=== PATIENT | female | born 1930 | race Caucasian/White ===

== ENCOUNTER 2017-11-28 17:53 | Inpatient (IN) | payer MEDICARE, OTHER ==
[~2017-11-28] VITALS: Ht 177.8 cm; Wt 61.2 kg
[~2017-11-28 17:53] MED LIST: ACETAMINOPHEN650 M5 PO; ALDACTONE25 MG PO; BILBERRY1 EAC1 PO; CARDIZEM CD120 MG PO; CENTRUM SILVER1 EAC1 PO; CIPROFLOXACIN500 M3 PO; DIGOXIN250 MCG PO; FLECAINIDE ACET50 M1 PO; GLUCOSAMINE CH1 EAC7 PO; IRON325 PO; KEFLEX500 MG PO; KLOR-CON 1010 MEQ PO; KRILL OIL500 MG PO; LASIX 80 MG TAB80 MG PO; LEVAQUIN 500 M500 M2 PO; LEVOTHYROXIN0.025 MG PO; LOPRESSOR25 PO; METOLAZONE 5 MG5 MG PO; MINOCIN50 MG PO; MULTI VITAMIN1 EACH PO; NOHOMEMEDICATIONS; OCUVITE EYE +1 EACH PO; OCUVITE TABLET1 EAC1 PO; OMEGA-31000 M1 PO; OMEPRAZOLE40 MG PO; PROBIOTIC1 EAC2 PO; SANTYL OINTMENT30 G1 TP; SELENIUM200 MC3 PO; SILVADENE20 GM TP; SORINE 80 MG TA80 M1 PO; SYNTHROID75 MCG PO; TOPROL XL25 MG PO; XARELTO15 MG PO; XARELTO20 MG PO
[2017-11-28 18:01] VITALS: BP 114/85
[2017-11-28] MEDS ORDERED: BETAMETHASONE D15 G2 TOP (18:07)
[2017-11-28 18:37] LABS: HEMATOCRIT 36.5 % (37.0-47.0); HEMOGLOBIN 12.2 gm/dL (12.0-15.0); MCH 31.6 pg (26.0-34.0); MCHC 33.5 g/dL (28.0-37.0); MCV 94.2 fL (80.0-100.0); MPV 7.4 fl. (7.2-11.1); NUCLEATED RBCS 0 /100WBC; PLATELET COUNT* 251 thou/uL (150-400); RBC 3.88 mil/uL (4.20-5.00); RDW-CV 14.5 % (10.5-14.5); WBC 6.5 thou/uL (4.0-11.0)
[2017-11-28 18:46] LABS: CREATININE 1.4 mg/dL (0.6-1.3); POTASSIUM 4.4 mmol/L (3.5-5.1)
[2017-11-28 18:57] LABS: ALBUMIN 3.7 g/dL (3.4-5.0); TOTAL BILIRUBIN 1.2 mg/dL (<0.1-1.0); TOTAL PROTEIN 7.6 g/dL (6.4-8.2)
[2017-11-28 19:16] LABS: ABSOLUTE EOSINOPHILS 0.2 thou/uL (0.0-0.7); ABSOLUTE LYMPHOCYTES 0.7 thou/uL (0.8-5.3); ABSOLUTE MONOCYTES 0.5 thou/uL (0.0-1.2); ABSOLUTE NEUTROPHILS 5.2 thou/uL (1.6-8.1); ATYPICAL LYMPHS 1 %; OVALOCYTES 1+
[2017-11-28 19:17] LABS: ANISOCYTOSIS 1+; PLATELET ESTIMATE ADEQUATE; POIKILOCYTOSIS 1+
[2017-11-28 20:01] LABS: ESR (SEDRATE) 21 mm/hr (0-30)
[2017-11-28 21:30] VITALS: BP 121/75
[2017-11-28 22:00] VITALS: BP 107/73
[2017-11-29 04:00] VITALS: BP 85/53
--- NOTE | 2017-11-29 07:51 | NUR ---
PATIENT ARRIVED ON FLOOR FROM ER ABOUT 2140. PATIENT ADMISSION HISTORY AND ASSESSMENT WAS COMPLETED CHARTED. IV REMAINS SALINE LOCKED. PICTURES WERE TAKEN OF BILATERAL LOWER EXTREMTIES AND PLACED ON THE CHART. PATIENT HAD NO COMPLAINTS OF PAIN. WILL CONTINUE TO MONITOR.
[2017-11-29 07:55] VITALS: BP 99/64
--- NOTE | 2017-11-29 10:47 | NUR ---
CM SPOKE TO THE PATIENT TO DISCUSS HOME SITUATION, DISCHARGE PLANNING, AND TO INFORM OF THE ROLE OF CM. PATIENT ALERT, ORIENTED, AND INDEPENDENT WITH ADL'S. PATIENT RESIDES AT HOME WITH SON. PATIENT OWNS 0 DME. PATIENT HAS O HX OF HH OR SNF. PATIENT PLANS TO RETURN HOME AT DISCHARGE AND DOES NOT ANTICIPATE ANY NEEDS. CM WILL REMAIN AVAILABLE TO ASSIST AND FOLLOW NEEDED.
--- NOTE | 2017-11-29 11:24 | NUR ---
P.T. ORDERS RECEIVED. CHART REVIEWED. NSG INDICATED PT HAS BEEN UP INDEP W/O DIFFICULTY. PT REPORTED SAME. P.T. OBSERVED PT GET OUT OF BED AND AMB TO BATHROOM INDEP. PT HAS NO CONCERNS RE MOBILITY. NO ACUTE P.T. INTERVENTION INDICATED AT THIS TIME.
--- NOTE | 2017-11-29 11:59 | NUR ---
ORDER RECEIVED FOR "OT EVALUATION AND TREATMENT". PT STATES THAT SHE DOES NOT NEED OCCUPATIONAL THERAPY. PT ABLE TO REACH TO FEET I. PER P.T., PT I WITH MOBILITY TO BATHROOM. UE STRENGTH WFL. PLAN TO D/C FROM SKILLED OT SERVICES AT THIS TIME.
--- NOTE | 2017-11-29 14:07 | 2DMMODE ---
[place] [address] 2 D/M-MODE ECHOCARDIOGRAM Name: RU SHAH Room: [address] IN [facility]#: [id number] Admission: 11/28/17 Attend Phys: Lashon Bustamante, Discharge: Date of : 34 Date of Service: 11/29/17 1407 Report #: [id number] THIS REPORT FOR: //name// ADDENDUM APPROVED REPORT Study performed: 11/29/2017 12:15:59 EXAM: Comprehensive 2D, Doppler, and color-flow Echocardiogram Patient Location: In-Patient Room #: [facility] Status: routine BSA: 1.77 HR: 63 bpm BP: 85/53 mmHg Rhythm: Atrial Fibrillation Other Information Study Quality: Good Indications Pacemaker Heart failure? Large Right heart 2D Dimensions LVEF(%): 58.36 (>50%) IVSd: 10.91 (7-11mm) LVOT Diam: 19.49 (18-24mm) LVDd: 38.54 mm PWd: 9.10 (7-11mm) Ascending Ao: 33.63 (22-36mm) LVDs: 26.86 (25-40mm) Aortic Root: 31.66 mm Marx's LVEF: 58.36 % Volumes Left Atrial Volume (Systole) LA ESV Index: 38.60 mL/m2 Aortic Valve AoV Peak Brian.: 1.00 m/s AO Peak Gr.: 3.97 mmHg LVOT Max P.96 mmHg AO Mean Gr.: 1.77 mmHg LVOT Mean P.87 mmHg LVOT Max V: 0.70 m/s AO V2 VTI: 14.84 cm LVOT Mean V: 0.43 m/s DALLAS (VTI): 2.35 cm2 LVOT V1 VTI: 11.68 [place] [address] 2 D/M-MODE ECHOCARDIOGRAM Name: RU SHAH Room: [address] IN .R.#: [id number] Admission: 11/28/17 Attend Phys: Lashon Bustamante, Discharge: Date of : 34 Date of Service: 11/29/17 1407 Report #: [id number] MV Decel. Time: 184.38 ms MV PHT: 53.47 ms MVA (PHT): 4.11 cm2 TDI Medial E' Brian.: 0.12 m/s Lateral E' Brian.: 0.18 m/s Pulmonary Valve PV Peak Brian.: 0.73 m/s PV Peak Gr.: 2.12 mmHg Tricuspid Valve TR Peak Gr.: 13.09 mmHg RVSP: 28.00 mmHg Left Ventricle The left ventricle is normal size. There is normal LV segmental wall motion. There is normal left ventricular wall thickness. Left ventricular systolic function is normal. The left ventricular ejection fraction is within the normal range. LVEF is 55-60%. This study is not technically sufficient to allow evaluation of the LV diastolic function due to atrial fibrillation. Right Ventricle Right ventricle is severely dilated. Right ventricle is hypokinetic. Pacemaker lead is present in the right ventricle. Atria Left atrium is mildly dilated. Right atrium is severely dilated. Aortic Valve The aortic valve is normal in structure. No aortic regurgitation is present. There is no aortic valvular stenosis. Mitral Valve The mitral valve is normal in structure. Mild mitral regurgitation. No evidence of mitral valve stenosis. Tricuspid Valve The tricuspid valve is normal in structure. Severe tricuspid regurgitation. The RVSP is ___28____ mmHg. Pulmonic Valve The pulmonary valve is normal in structure. There is no pulmonic [place] [address] 2 D/M-MODE ECHOCARDIOGRAM Name: RU SHAH Room: [address] IN [facility]#: [id number] Admission: 11/28/17 Attend Phys: Lashon Bustamante, Discharge: Date of : 34 Date of Service: 11/29/17 1407 Report #: [id number] Great Vessels The aortic root is normal in size. IVC is dilated and collapses <50% with inspiration. Pericardium There is no pericardial effusion. Left pleural effusion. <Conclusion> Left ventricular systolic function is normal. The left ventricular ejection fraction is within the normal range. LVEF is 55-60%. This study is not technically sufficient to allow evaluation of the LV diastolic function due to atrial fibrillation. Right ventricle is severely dilated. Left atrium is mildly dilated. Right atrium is severely dilated. No aortic regurgitation is present. Mild mitral regurgitation. The tricuspid valve is normal in structure. Severe tricuspid regurgitation. The RVSP is ___28____ mmHg. There is no pulmonic valvular regurgitation. IVC is dilated and collapses <50% with inspiration. Pacemaker lead is present in the right ventricle. Left pleural effusion. <ELECTRONICALLY SIGNED> By: Mary Aldana MD, FACC 11/29/17 1407 1407 140 Mary Aldana MD, FACC /INF
--- NOTE | 2017-11-29 15:12 | EKG ---
[place] [address] ELECTROCARDIOGRAM REPORT Name: RU SHAH Room: [address] ADM IN M.R.#: [id number] Admission: 11/28/17 Attend Phys: Lashon Bustamante MD Discharge: Date of : 34 Report #: [id number] THIS REPORT FOR: //name// [facility] Test Date: 2017-11-29 Test Time: 14:22:28 Pat Name: RU SHAH Department: Room: [address] Gender: F Plant Hr Manager: : 1930 Requested By: Lashon Bustamante Order Number: [id number] Reginald MD: Wolf Maciel Measurements Intervals [place] Rate: 74 P: 0 [place]: 180 QRS: 88 QRSD: 97 T: -75 QT: 376 QTc: 418 Interpretive Statements Atrial fibrillation Occasional ventricularly paced complexes Premature ventricular contractions Consider RVH w/ secondary repol abnormality Abnormal T, consider ischemia, lateral leads Compared to ECG 07/19/2017 16:11:54 T-wave abnormality now present Possible ischemia now present Atrial-paced complex(es) or rhythm no longer present Right-axis deviation no longer present Electronically Signed On 11-29-2017 15:12:25 DIRECTOR ACUTE by Wolf Maciel [email or web address] <ELECTRONICALLY SIGNED> By: Wolf Maciel MD, [facility] 11/29/17 1512 142 142 Wolf Maciel MD, [facility] /EPI
[2017-11-29 17:02] VITALS: BP 94/62
--- NOTE | 2017-11-29 18:35 | NUR ---
PATIENT RESTING IN BED, FAMILY AT BEDSIDE. PATIENT DENIES ANY PAIN. PATIENT HAS BLE CELLULITIS, AREAS STILL WARM/RED AND EDEMA HAS SUBSIDED SLIGHTLY. PATIENT IS UP AD KINGA IN ROOM. PATIENT HAS GOOD APPETITE. PATIENT DENIES ANY NEEDS AT THIS TIME. CALL LIGHT WITHIN REACH. WILL CONTINUE TO MONITOR.
[2017-11-29 20:45] VITALS: BP 108/56
[2017-11-30] VITALS: BP 105/62
[2017-11-30 04:40] LABS: HEMATOCRIT 33.5 % (37.0-47.0); HEMOGLOBIN 11.5 gm/dL (12.0-15.0); MCHC 34.4 g/dL (28.0-37.0); MPV 7.6 fl. (7.2-11.1); RBC 3.6 mil/uL (4.20-5.00); RDW-CV 14.6 % (10.5-14.5); WBC 4.6 thou/uL (4.0-11.0)
[2017-11-30 05:05] LABS: CALCIUM 8.5 mg/dL (8.5-10.1); CREATININE 1.3 mg/dL (0.6-1.3); MAGNESIUM 2.1 mg/dL (1.8-2.4); TOTAL BILIRUBIN 0.5 mg/dL (<0.1-1.0); TOTAL PROTEIN 6.1 g/dL (6.4-8.2)
--- NOTE | 2017-11-30 05:35 | NUR ---
PT SLEPT SOUNDLY DURING THE NIGHT, NEW IV PLACED LAST NIGHT, UP AD KINGA, TOOK SHOWER BY SELF, CALL LIGHT IN REACH, NO PAIN, WILL CONTINUE TO MONITOR
[2017-11-30 07:50] VITALS: BP 102/62
[2017-11-30 16:00] VITALS: BP 97/60
--- NOTE | 2017-11-30 18:44 | NUR ---
RECIEVED PATIENT AT 1500. PATIENT A&OX4, ROOM AIR, IV RIGHT FOREARM SALINE LOCK WITH IV ABX. UP AD KINGA, STEADY GAIT. NO C/O PAIN/N/V. NO OTHER CONCERNS AT THIS TIME. APPROPRIATE AND COOPORATIVE WITH CARE.
[2017-11-30 19:50] VITALS: BP 103/57
[2017-12-01 04:44] LABS: HEMOGLOBIN 11.9 gm/dL (12.0-15.0); MCH 31.8 pg (26.0-34.0); MCV 93.6 fL (80.0-100.0); MPV 7.6 fl. (7.2-11.1); RBC 3.74 mil/uL (4.20-5.00); RDW-CV 14.5 % (10.5-14.5); WBC 4.1 thou/uL (4.0-11.0)
[2017-12-01 05:02] LABS: CALCIUM 8.7 mg/dL (8.5-10.1); CREATININE 1.4 mg/dL (0.6-1.3); MAGNESIUM 2.2 mg/dL (1.8-2.4)
--- NOTE | 2017-12-01 07:25 | NUR ---
PT SLEPT MOST OF NIGHT. ASSESSMENT DOCUMENTED. MEDS GIVEN PER E-JAN. PT REPORTED NO PAIN OR NAUSEA. IV PATENT. NO CONCERNS AT THIS TIME, WILL CONTINUE TO MONTIOR.
[2017-12-01 07:40] VITALS: BP 106/65
[2017-12-01 09:23] VITALS: BP 96/57
--- NOTE | 2017-12-01 13:47 | NUR ---
NEW P.T. ORDERS RECEIVED ON 11/30/17 FOR STRENGTHENING AND AMBULATION. NOTED IN CHART, THAT PT WAS SCREENED BY P.T. ON 11/29/17 AND FOUND TO NOT MEET THE CRITERIA FOR SKILLED INTERVENTION SHE WAS UP AD KINGA, INDEPENDENT IN ROOM AND DENIED NEED FOR P.T. DISCUSSED AGAIN WITH NSG THIS DATE, WHO REPORT PT CONTINUES TO BE UP AD KINGA, INDEPENDENT IN ROOM WITH NO CHANGE SINCE 11/29/17 IN FUNCTIONAL STATUS OR STRENGTH. IN FACT, THEY REPORTED PT AMBULATED INDEPENDENTLY DOWN THE ROPER AND TOOK HER OWN SHOWER THIS MORNING. NO SKILLED P.T. INTERVENTIONS IDENTIFIED AT THIS TIME.
[2017-12-01 15:23] VITALS: BP 96/57
[2017-12-01] MEDS ORDERED: KEFLEX500 M1 PO (15:30)
--- NOTE | 2017-12-01 16:09 | NUR ---
PATIENT A&OX4, ROOM AIR, IV RIGHT WRIST SALINE LOCK. UP AD KINGA STEADY GAIT. NO C/O PAIN/N/V. NO OTHER CONCERNS AT THIS TIME. PICTURES TAKEN OF BLE. IV DISCONDINUED CATHETER FULLY INTACT. PROLONGED BLEEDING AT SITE; HELD PRESSURE FOR 5 MIN, BLEEDING STOPPED. REVEIWED DISCHARGE PAPERWORK, VERBALIZES UNDERSTANDING, NO FURTHER QUESTIONS. LEFT UNIT AT 1605 VIA W/C WITH CHILD. ALL BELONGINGS TAKEN WITH PATIENT, NOTHING LEFT BEHIND. APPROPRIATE AND COOPORATIVE WITH CARE.
--- NOTE | 2017-12-03 08:34 | CON ---
[address] [address] CONSULTATION Name: RU SHAH Room: [address] IN .R.#: [id number] Admission: 11/28/17 Attend Phys: Lashon Bustamante MD Discharge: 12/01/17 Date of : 34 Report #: [id number] THIS REPORT FOR: //name// CC: Jeff Aldana MD [facility] Lashon Diaz DO INDICATION FOR ADMISSION: Acute on chronic combined heart failure. HISTORY OF PRESENT ILLNESS: The patient is a very pleasant 87-year-old white female who has a history of dilated cardiomyopathy, chronic combined congestive heart failure, essential hypertension, chronic atrial fibrillation, pacemaker placement and peripheral vascular disease. The patient was admitted to the hospital with increased lower extremity swelling and cellulitis as well as acute on chronic combined heart failure. The patient's swelling has improved overnight with bed rest and diuresis. She denies chest pain. She is not having shortness of breath. She is without palpitations. She has a pacemaker placement in the past. By interrogation, she has chronic atrial fibrillation. PAST MEDICAL HISTORY: 1. Atrial fibrillation, which now appears to be persistent. 2. Chronic combined heart failure. 3. History of paroxysmal supraventricular tachycardia. PAST SURGICAL HISTORY: Breast lumpectomy 10/24/2013, breast surgery in 1983, cardiac pacemaker placement 2 years ago, cataract extraction in 2015. FAMILY HISTORY: Noncontributory. SOCIAL HISTORY: She quit smoking in 1996. She does not drink alcohol. ALLERGIES: None documented. HOME MEDICATIONS: Bilberry supplement 1 tablet daily, digoxin 0.125 mg every other day, diltiazem 120 mg daily, iron sulfate 325 mg daily, Lasix 60 mg b.i.d., Krill oil 500 mg daily, Probiotic 1 capsule daily, Synthroid 75 mcg daily, metolazone 5 mg daily as needed, metoprolol succinate 25 mg daily, multivitamin 1 tablet daily, potassium chloride 10 mEq daily, Xarelto 15 mg daily, spironolactone 25 mg daily. REVIEW OF SYSTEMS: She reports near syncope twice in the recent past, hypothyroidism, history of anemia, history of breast cancer. She wears glasses without acute visual changes. She has decreased hearing and she wears dentures. Otherwise, 14-point review of systems is unremarkable. PHYSICAL EXAMINATION: [place] [address] CONSULTATION Name: RU SHAH Room: [address]#: [id number] Admission: 11/28/17 Attend Phys: Lashon Bustamante MD Discharge: 12/01/17 Date of : 32 Report #: [id number] VITAL SIGNS: Stable. Blood pressure 99/64, pulse 85 and irregular. GENERAL: This is a very pleasant elderly female who is in no distress. Mood and affect appropriate. HEENT: The patient is wearing glasses. Extraocular muscles intact. Mucous membranes are moist. NECK: Shows no jugular venous distention. There are no carotid bruits. CHEST: Chest reveals clear lung green without wheezes or rales. CARDIOVASCULAR: Reveals an irregularly irregular rhythm. I do not appreciate gallop or murmur. ABDOMEN: Reveals normal bowel sounds. The abdomen is soft and nontender. EXTREMITIES: Shows 2+ edema to the knees bilaterally with erythema and some bullous lesions. The legs are not warm to touch at this time. IMPRESSION AND RECOMMENDATIONS: 1. Acute on chronic combined heart failure. At this time, we will continue the patient's Lasix and increase her Aldactone to 50 mg daily. We will continue metolazone as needed. 2. Cellulitis. The patient has been placed on antibiotics. She appears to be defervescing fairly quickly. 3. Atrial fibrillation, rate appears fairly well controlled at this time. I am increasing her diltiazem to 120 mg twice daily. We will continue her digoxin and metoprolol at current doses. The patient is on Xarelto and having no bleeding problems. 4. History of essential hypertension. Her blood pressure actually is low normal presently. We will follow clinically. 5. Pacemaker adjusted to VVI to avoid rapid pacing and increased filling time. 6. History of peripheral vascular disease, presently stable. <ELECTRONICALLY SIGNED> By: Wolf Maciel MD, FACC 12/03/17 0834 1149 [id number] Center[facility] Maciel MD, FACC /nt
== END 2017-12-01 16:05 | disposition home or self-care (01) | DRG 602 ==
LOC: M.ERS 17:53 → M.3W 20:10 → M.TBA-ER 20:10 → M.3W 21:16
PROVIDERS: Family Medicine; Physician Assistant; ADMIT Internal Medicine
DX: L03.116 Cellulitis of left lower limb (principal); I50.43 Acute on chronic combined systolic (congestive) and diastolic (congestive) heart failure; N17.9 Acute kidney failure, unspecified; I42.0 Dilated cardiomyopathy; I13.0 Hypertensive heart and chronic kidney disease with heart failure and stage 1 through stage 4 chronic kidney disease, or unspecified chronic kidney disease; L03.115 Cellulitis of right lower limb; I48.91 Unspecified atrial fibrillation; E03.9 Hypothyroidism, unspecified; I48.2 Chronic atrial fibrillation; I73.9 Peripheral vascular disease, unspecified; N18.9 Chronic kidney disease, unspecified; I87.2 Venous insufficiency (chronic) (peripheral); Z79.899 Other long term (current) drug therapy; Z95.0 Presence of cardiac pacemaker; Z98.49 Cataract extraction status, unspecified eye; Z87.891 Personal history of nicotine dependence

== ENCOUNTER 2018-02-03 17:28 | Inpatient (IN) | payer MEDICARE, OTHER ==
[~2018-02-03] VITALS: Ht 177.8 cm; Wt 67.6 kg
[~2018-02-03 17:28] MED LIST changes: +BETAMETHASONE D15 G2 TOP; +KEFLEX500 M1 PO
[2018-02-03 17:31] VITALS: BP 119/69
[2018-02-03 19:22] LABS: HEMATOCRIT 36.9 % (37.0-47.0); HEMOGLOBIN 12.6 gm/dL (12.0-15.0); MCH 31.5 pg (26.0-34.0); MCHC 34.1 g/dL (28.0-37.0); MCV 92.4 fL (80.0-100.0); MPV 7.5 fl. (7.2-11.1); NUCLEATED RBCS 0 /100WBC; PLATELET COUNT* 226 thou/uL (150-400); RBC 3.99 mil/uL (4.20-5.00); RDW-CV 15.7 % (10.5-14.5); WBC 7.5 thou/uL (4.0-11.0)
[2018-02-03 19:30] LABS: CALCIUM 8.9 mg/dL (8.5-10.1); CREATININE 2.1 mg/dL (0.6-1.3); POTASSIUM 4.2 mmol/L (3.5-5.1)
[2018-02-03 19:31] LABS: APTT 38.8 Seconds (25.0-31.3); INR 1.5; PROTIME 14.7 Seconds (9.20-11.50)
[2018-02-03 19:35] LABS: ALBUMIN 3.9 g/dL (3.4-5.0); TOTAL BILIRUBIN 0.5 mg/dL (<0.1-1.0); TOTAL PROTEIN 7.5 g/dL (6.4-8.2)
[2018-02-03 19:41] LABS: ABSOLUTE LYMPHOCYTES 0.5 thou/uL (0.8-5.3); ABSOLUTE MONOCYTES 0.4 thou/uL (0.0-1.2); ABSOLUTE NEUTROPHILS 6.6 thou/uL (1.6-8.1); OVALOCYTES 1+; PLATELET ESTIMATE ADEQUATE
[2018-02-03 19:42] LABS: ANISOCYTOSIS 1+; BURR CELLS Occasional; POIKILOCYTOSIS 1+
[2018-02-03 21:15] VITALS: BP 112/63
[2018-02-03 21:19] VITALS: BP 113/68
--- NOTE | 2018-02-03 23:26 | NUR ---
PATIENT ARRIVED ON UNIT AT 2118 VIA ER CART. TRANSFERRED TO UNIT BED. ORIENTED TO UNIT. ADMISSION COMPLETE. BED IN LOW POSITION. BED ALARM IN PLACE. CALL LIGHT WITHIN REACH. NURSING WILL CONTINUE TO MONITOR.
[2018-02-04] VITALS (7 sets, daily range): BP systolic 98–116; BP diastolic 58–76
[2018-02-04 01:39] LABS: URINE BILIRUBIN NEGATIVE (Negative); URINE BLOOD NEGATIVE (Negative); URINE CLARITY CLEAR; URINE COLOR YELLOW; URINE GLUCOSE-RANDOM NEGATIVE (Negative); URINE KETONES NEGATIVE (Negative); URINE LEUKOCYTES-REFLEX NEGATIVE (Negative); URINE NITRITE-REFLEX NEGATIVE (Negative); URINE PROTEIN NEGATIVE (Negative); URINE SPECIFIC GRAVITY 1.025 (1.005-1.030); URINE UROBILINOGEN 0.2 E.U./dl (0.2-1.0)
--- NOTE | 2018-02-04 04:49 | NUR ---
PATIENT ALERT AND ORIENTED THROUGHOUT SHIFT. CURRENTLY ON 4 LITERS OF OXYGEN WITH A SAT OF 92%. VITAL SIGNS STABLE. PAIN BEING MANAGED WITH IV PAIN MEDICATION. DENIED ANY NAUSEA THROUGHOUT SHIFT. IV PATENT IN THE LEFT AC INFUSING NS AT 100 ML/HR. PATIENT HAS BEEN CONCERNED ABOUT IF SHE WILL BE HAVING SURGERY. NURSING EXPLAINED TO HER A PLAN WOULD BE MADE AND SHE WOULD BE KEPT INFORMED. NPO STATUS HAS BEEN MAINTAINED. HOURLY ROUNDING COMPLETE. FALL PRECAUTIONS IN PLACE. CALL LIGHT WITHIN REACH. NURSING WILL CONTINUE TO MONITOR.
[2018-02-04 10:39] LABS: HEMATOCRIT 35.9 % (37.0-47.0); HEMOGLOBIN 12.1 gm/dL (12.0-15.0); MCH 31.1 pg (26.0-34.0); MCHC 33.6 g/dL (28.0-37.0); MCV 92.4 fL (80.0-100.0); MPV 7.6 fl. (7.2-11.1); RBC 3.88 mil/uL (4.20-5.00); RDW-CV 15.4 % (10.5-14.5); WBC 6.2 thou/uL (4.0-11.0)
--- NOTE | 2018-02-04 10:51 | EKG ---
[place] [address] ELECTROCARDIOGRAM REPORT Name: RU SHAH Room: [address] ADM IN M.R.#: [id number] Admission: 02/03/18 Attend Phys: Garett Jenkins MD Discharge: Date of : 34 Report #: [id number] THIS REPORT FOR: //name// [facility] ED Test Date: 2018-02-03 Test Time: 19:08:06 Pat Name: RU SHAH Department: Room: [facility] Gender: F Hot Stamp Operator: [facility] : 1930 Requested By: Zaki Bailey Order Number: [id number] MD: Sam Lal Measurements Intervals [place] Rate: 65 P: 0 [place]: 284 QRS: -85 QRSD: 171 T: 95 QT: 479 QTc: 499 Interpretive Statements Ventricular-paced complexes No further analysis attempted due to paced rhythm Compared to ECG 11/29/2017 14:22:28 Ventricular premature complex(es) no longer present paced rhythm noted Electronically Signed On 02-04-2018 10:50:45 CDT by Sam Lal [email or web address] <ELECTRONICALLY SIGNED> By: Sam Lal MD, FACC 02/04/18 1050 1908 1908 Sam Lal MD, [facility] /EPI
[2018-02-04 10:56] LABS: APTT 34.3 Seconds (25.0-31.3); INR 1.2; PROTIME 12.1 Seconds (9.20-11.50)
[2018-02-04 11:37] LABS: ALBUMIN 3.4 g/dL (3.4-5.0); CALCIUM 8.5 mg/dL (8.5-10.1); CREATININE 1.7 mg/dL (0.6-1.3); MAGNESIUM 2.3 mg/dL (1.8-2.4); POTASSIUM 4.3 mmol/L (3.5-5.1); TOTAL BILIRUBIN 0.7 mg/dL (<0.1-1.0); TOTAL PROTEIN 6.7 g/dL (6.4-8.2)
--- NOTE | 2018-02-04 18:41 | NUR ---
PATIENT HAS NOT RETURNED FROM PACU. WILL CONTINUE TO MONITOR.
[2018-02-05] VITALS (12 sets, daily range): BP systolic 89–119; BP diastolic 51–72
--- NOTE | 2018-02-05 01:21 | NUR ---
PT TRANSFERED TO ICU 06 FROM PACU. LEFT HIP DRSG D/I. ICE PACK ON L HIP. DENIES PAIN UNTIL APPROX MN THEN 10/10.HYDROCODONE GIVEN FOR L HIP PAIN. MELATONIN GIVEN FOR SLEEP. PT ON BIPAP. REQUESTING FREQ ORAL CARE Q 15 MIN. PT TEACHING RE RECOVERY TIME ON BIPAP. AT ONE POINT PT STATED SHE DID NOT WANT TO BE ON BIPAP. RT NOTIFED. RT CAME AND SPOKE WITH PT AND PT IS CONTINUING BIPAP. PT INITAL ASSESSMENT REFUSED TO TURN. PT TEACHING RE TURNING Q 2 HRS. PT CONSENTED AT 2200 TO BE TURNED. WILL CONTINUE TO MONITOR AND ASSESS.
[2018-02-05 04:10] LABS: HEMATOCRIT 31.8 % (37.0-47.0); HEMOGLOBIN 10.7 gm/dL (12.0-15.0)
--- NOTE | 2018-02-05 04:55 | NUR ---
PT OFF BIPAP AT 0400. ON 4 LITERS NC. O2 SAT 91% PT IS AT HER BASE LINE SAT. DENIES PAIN. WILL CONTINUE TO MONITOR.
--- NOTE | 2018-02-05 08:31 | NUR ---
ORDERS RECEIVED 02/04/18. PT TRANSFERRED TO ICU FROM PACU WITH RESPIRATORY ISSUES. WILL HOLD P.T. AND AWAIT NEW ORDERS WHEN PT MEDICAL STABLE TO PARTICIPATE IN POST-OP THERAPY.
[2018-02-05 09:52] LABS: CALCIUM 8.6 mg/dL (8.5-10.1); CREATININE 2.2 mg/dL (0.6-1.3); POTASSIUM 4.7 mmol/L (3.5-5.1)
--- NOTE | 2018-02-05 12:00 | NUR ---
ASSUMED CARE OF PT AT 0730. PT RESTING IN BED. PT A&0X4, FORGETFUL AT TIMES. PT MADE TELE STATUS. PT POD 1 FOR L HIP HEMIARTHROPLASTY. PT GOAL FOR TODAY IS TO WORK WITH PT AND OT, TITRATE OFF OXYGEN AND DISCONTINUE GONZALEZ CATHETER. PT TRACING AV PACED ON THE BRICK SIDING APPLICATOR. PT ON 4L NC SAT 88% UPON BEGINNING OF SHIFT. PT INCREASED TO 6 L HIGH FLOW NC SAT 93%. PT DENIES ANY SHORTNESS OF BREATH. PT ENCOURAGED TO COUGH AND DEEP BREATH WELL USE IS EVERY 1 HOUR. FAMILY AT BEDSIDE. GONZALEZ CATHETER TO DEPENDENT DRAINAGE. IVF AT 75 ML HR. PT IS 50% WTB LLE. ABDUCTOR WEDGE IN PLACE. PT REPOSITIONED EVERY 2 HOURS FOR COMFORT. HOB 30-45 DEGREES AT ALL TIMES. TOTAL HIP PRECAUTIONS IN PLACE. REHAB CONSULT IN PLACE FOR DISCHARGE VS SNF. LEFT HIP INCISION IS C/D/I WITH ABD AND MATAPOR TAPE. PT USES ICE PACK Q2 HOURS FOR PAIN, OTHER THAN THAT DENIES ANY PAIN OR DISCOMFORT TO LEFT HIP. FAMILY AT BEDSIDE. AM ASSESSMENT CHARTED. MEDICATIONS PER JAN. PT REPOSITIONED EVERY 2 HOURS FOR COMFORT. HOURLY ROUNDING OBSERVED. BED IN LOW POSITION. BED ALARM IN PLACE. FALL PRECAUTIONS IN PLACE. CALL LIGHT WITHIN REACH. WILL CONTINUE PLAN OF CARE.
--- NOTE | 2018-02-05 12:42 | NUR ---
CM SPOKE TO THE PATIENT TO DISCUSS HOME SITUATION, DISCHARGE PLANNING, AND TO INFORM OF THE ROLE OF CM. PATIENT ALERT AND ORIENTED. PRIOR TO ADMISSION PATIENT ABLE TO PERFORM MITOCHONDRIAL DISORDERS COUNSELOR, AND PREPARE MEALS. PATIENT DRIVES. PATIENT RESIDES AT HOME WITH SON. PATIENT OWNS A WALKER BUT DOES NOT USE IT. PATIENT HAS NO HX OF OR SNF. PATIENT INFORMS THAT DR MCLAIN HAS CONSULTED REHAB AND SHE HOPES TO RECIEVE THERAPY ON INPATIENT REHAB PRIOR TO RETURNING HOME. CM WILL REMAIN AVAILABLE TO ASSIST AND FOLLOW NEEDED.
--- NOTE | 2018-02-05 13:15 | OP ---
[facility] [address] [place] [address] OPERATIVE REPORT Name: RU SHAH Room: [address] IN M.R.#: [id number] Admission: 02/03/18 Attend Phys: Garett Jenkins MD Discharge: Date of : 34 Report #: [id number] THIS REPORT FOR: //name// CC: Garett Diaz DATE OF SERVICE: 02/04/2018 FAMILY PHYSICIAN: Dr. Danny Diaz. PREOPERATIVE DIAGNOSIS: Closed displaced subcapital left hip fracture. POSTOPERATIVE DIAGNOSIS: Closed displaced subcapital left hip fracture. OPERATION PERFORMED: Hemiarthroplasty, left hip. SURGEON:, Wolf Garcia DO. UNDERWRITING ASSISTANT: Garett Garrido. NEXT ACTIVITIES SPECIALIST: Dane Slater,. ANESTHESIA: General. GROSS PATHOLOGY: There was evidence of a displaced subcapital left hip fracture. IMPLANTS UTILIZED: Hardy VerSys mid fiber code size 14. A 0 neck length, head, 51 mm bipolar acetabular shell. DESCRIPTION OF PROCEDURE: The patient was brought to the operating room where general anesthetic was administered. The patient was placed on the operating table in lateral position, left hip up. Preoperative antibiotics were given. Hibiclens scrub and prep were done to the left hip in the usual manner. The patient draped in sterile manner. An incision was then made approximately 5 inches in length on the lateral aspect of the left hip, was carried down through the skin and subcuticular material by sharp dissection. Tensor fascia rosa split in line with the incision. Gluteus medius and minimus were transected at the musculotendinous junction. An opening H-type capsulotomy was performed. The femoral neck is marked. Osteotomy was performed. The head was removed, measured, trial 51 was noted to fit well. Attention to the femur where the box osteotome was utilized to remove the medial portion of the greater trochanter. The T-reamer was placed down the shaft, and the trochanteric broach is utilized. The femur was then reamed and broached up to size 14, which was a good fit. The trial components were assembled. The hip was reduced with the above size being the best fit. The trial components are removed[place] [address] OPERATIVE REPORT Name: RU SHAH Room: [address] IN [facility].#: [id number] Admission: 02/03/18 Attend Phys: Garett Jenkins MD Discharge: Date of : 34 Report #: [id number] was impacted into position and noted to fit well. The bipolar cup is assembled, placed on the femoral stem, impacted into position. The hip was reduced and noted to be stable and the components fit well. The remaining portion of the capsule was reattached with 1 Vicryl. Gluteus medius and minimus reattached with a 5 Ti-Cron, tensor fascia rosa with 1 Vicryl, subcutaneous 2-0 Vicryl and salvatore on the skin. Estimated blood loss approximately 150 mL. The wound was thoroughly irrigated throughout the entire procedure. Needle and sponge count reported as correct. The area was anesthetized with 0.25% Marcaine plain, approximately 30 mL. <ELECTRONICALLY SIGNED> By: Rigoberto Gerber DO 02/05/18 1315 1528 [id number] Garcia DO /nt
--- NOTE | 2018-02-05 13:16 | NUR ---
STREET AND BUILDING DECORATOR: RECEIVED CONSULT FOR POSSIBLE INPATIENT REHAB ADMISSION. CONSULT HAS BEEN ACKNOWLEDGED BY STREET AND BUILDING DECORATOR AND DR. FLOYD. PATIENT HAS SUFFERED A FRACTURED HIP. WILL FOLLOW PATIENT AND SEE HOW SHE PROGRESSES WITH THERAPY THERAPY NOT STARTED AT THIS TIME DUE TO RESPIRATORY ISSUES. THANK YOU FOR THE CONSULT.
--- NOTE | 2018-02-05 17:41 | NUR ---
NO ACUTE CHANGES THROUGHOUT SHIFT. REFER TO CHARTING. PT TRANSFERRED TO TELE ROOM 212 AT APPROXIMATELY 1300 VIA BED AND ALL BELONGINGS. PT WORKED WITH PHYSICAL AND OCCUPATIONAL THERAPY TODAY. TOLATED FAIR. PT UP TO RECLINER WITH ASSIST X1. PT DENIES ANY NEED FOR PAIN MEDICINE THROUGHOUT SHIFT. PT ENCOURAGED TO USE ICE PACK Q2H PRN. PT CONTINUES TO BE ON 6L HIGH FLOW NC SAT 90-93%. PT DENIES ANY SHORTNESS OF BREATH. PT ENCOURAGED TO USE IS AND DEEP BREATHING AND COUGHING EXERCISES. PT CONTINUES TO TRACE AV PACED ON THE BOXING PROMOTER. GONZALEZ DISCONTINUED AT APPROXIMATELY 1730. PT REQUESTING TO LEAVE GONZALEZ IN UNTIL AM. EDUCATION GIVEN TO PT AND PT FAMILY REGARDING INFECTION. IVF. PT 50% WB LLE. ABDUCTOR WEDGE IN PLACE IN BED. MEDICATIONS PER JAN. PT REPOSITIONED EVERY 2 HOURS FOR COMFORT. HOURLY ROUNDING OBSERVED. BED IN LOW POSITION. BED ALARM IN PLACE. FALL PRECAUTIONS IN PLACE. CALL LIGHT WITHIN REACH. WILL CONTINUE PLAN OF CARE.
[2018-02-06 05:00] VITALS: BP 105/72
[2018-02-06 05:01] LABS: HEMATOCRIT 28.1 % (37.0-47.0); HEMOGLOBIN 9.8 gm/dL (12.0-15.0); MCH 31.2 pg (26.0-34.0); MCHC 34.7 g/dL (28.0-37.0); MCV 89.9 fL (80.0-100.0); MPV 7.8 fl. (7.2-11.1); RBC 3.13 mil/uL (4.20-5.00); RDW-CV 15.4 % (10.5-14.5); WBC 12.5 thou/uL (4.0-11.0)
--- NOTE | 2018-02-06 05:30 | NUR ---
PATIENT RESTED IN BED. PATIENT O2 REQUIMENT INCREASED. PATIENT DID NOT SHOW SIGNS OF DISTRESS. HIP PRECAUTIONS WERE FOLLWED. FALL PRECAUTIONS IN PLACE, BED ALARM ON, CALL LIGHT WITHIN REACH. PATIENT WAS TURNED Q2 HOURS.
[2018-02-06 05:35] LABS: CALCIUM 8.6 mg/dL (8.5-10.1); CREATININE 2.4 mg/dL (0.6-1.3); POTASSIUM 5.2 mmol/L (3.5-5.1)
[2018-02-06 08:00] VITALS: BP 96/60
[2018-02-06 11:42] VITALS: BP 103/72
--- NOTE | 2018-02-06 13:18 | S ---
[address] [address] SURGICAL PATH RPT PROCEDURE Name: RU SHAH Room: [address] IN M.R.#: [id number] Admission: 02/03/18 Date of : 34 Discharge: Report #: [id number] Path Case #: [id number] PATHOLOGY REPORT COLLECTION DATE: 02/04/2018 RECEIVED DATE: 02/04/2018 SUBMITTING PHYS: Dr. Wolf Garcia OTHER PHYS: Dr. 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 (MELONIE:[facility]; 02/06/2018) PATHOLOGIST: Gordo Gil M.D. REPORT ELECTRONICALLY SIGNED BY: Gordo Gil M.D. DATE/TIME: 02/06/2018 13:18 * * * * * * * * * * * * GROSS PATHOLOGY: Received in formalin labeled "Ru Shah bone left hip," is a femoral head measuring 5.1 x 5.1 x 3.8 cm in greatest dimensions and separately submitted femoral neck measuring 3.5 x 2.5 x 1.8. The articular surface is pale mccoy and smooth to slightly granular in appearance. Sectioning reveals a light mccoy marrow space, with the distal most aspect hemorrhagic in appearance, consistent with a fracture site. Multiple Spindle Router Operator tissue from the fracture site is submitted in cassette A1, following decalcification. ([facility]; 02/05/2018) CLINICAL HISTORY: Left hip fracture INITIAL CPT CODE(S): A; 25071, 72685 Professional services performed by [facility] at [facility] [id number] [id number] SURGICAL PATH RPT PROCEDURE Name: RU SHAH Room: [address] IN [facility].#: [id number] Admission: 02/03/18 Date of : 32 Discharge: Report #: [id number] Path Case #: [id number] Technical services performed by [facility] at [address] [place] [address], [facility] [address], [place] [address]. [place] [address] PHONE: [phone] DIRECTOR: Jeffery Aleman M.D. * * * END OF REPORT * * *
[2018-02-06 15:22] VITALS: BP 114/65
--- NOTE | 2018-02-06 15:34 | NUR ---
RECEIVED REPORT. ASSUMED CARE OF PT AROUND 0730. PT A&OX4, VSS, O2 SAT 90% ON 9L PER HIGH FLOW CANNULA. ARCHITECTURAL DRAFTING INSTRUCTOR IN PLACE TRACING VPACED. AM ASSESSMENT AND VITALS COMPLETED CHARTED. PT HAS DENIED PAIN OR DISCOMFORT SO FAR THROUGHOUT THE SHIFT. IV'S TO RIGHT AND LEFT FOREARM INTACT AND SALINE LOCKED. IVF DISCONTINUED THIS AFTERNOON. PT HAS WORKED WITH P.T. AND O.T. TODAY. PT INFORMED OF PLAN OF CARE, COMMUNICATES UNDERSTANDING. PT EATING AND DRINKING WITHOUT ISSUE. PT ENCOURAGED TO USE IS TO IMPROVE OXYGENATION. PT ABLE TO SIT UP IN BEDSIDE CHAIR FOR MEALS WITH ASSITANCE. PT VOIDING PER BEDSIDE COMMODE WITH ASSIST X1 - VOIDING WITHOUT ISSUE. PT CONTINUING TO USE ORTHOPEDIC WEDGE WHEN IN BED. PT REPOSITIONING Q2HRS FOR COMFORT. CALL LIGHT IS WITHIN REACH, FALL PRECAUTIONS ARE IN PLACE. HOURLY ROUNDING PERFORMED. WILL CONTINUE TO MONITOR.
--- NOTE | 2018-02-06 19:47 | NUR ---
PT REMAINS A&O X4, VSS. 02 SATS IN LOW 90'S ON 9L PER HIGH FLOW CANNULA. PT HAS SAT IN BEDSIDE CHAIR TODAY MOST OF SHIFT. PT RECEIVED PO PAIN MEDICATION FOR LEFT HIP PAIN THIS AFTERNOON WITH RELIEF. PT EATING AND DRINKING WITHOUT ISSUE. PT UP TO BEDSIDE COMMODE WITH ASSIST, VOIDING WITHOUT ISSUE. NE CURRENTLY RESTING IN BED. CALL LIGHT IS WITHIN REACH. FALL PRECAUTIONS ARE IN PLACE. PT BEING REPOSITONED FOR COMFORT. HOURLY ROUNDING PERFORMED.
[2018-02-06 20:00] VITALS: BP 109/63
[2018-02-07] VITALS (7 sets, daily range): BP systolic 90–116; BP diastolic 49–63
--- NOTE | 2018-02-07 02:27 | NUR ---
RECIEVED REPORT AND ASSUMED CARE OF PATIENT AT 1930. GOLD STAMPER IN PLACE, PACED RHYTHM. ASSESSMENT AND VITALS COMPLETED CHARTED, VSS. PATIENT ON 9L HFC WITH O2 SAT 90%. PATIENT RESTING WITH NO DISTRESS. PATIENT DENIES PAIN EXCEPT WHEN REPOSITIONED OR UPON TRANSFER. HIP PRECAUTIONS IN PLACE. GOAL IS FOR PAIN MANAGEMENT AND MAINTAIN O2 >90%. CALL LIGHT WITHIN REACH
--- NOTE | 2018-02-07 04:46 | NUR ---
PATIENT PARTIALLY PROGRESSING TOWARDS GOALS: PATIENT ON 8L HFC WITH SATS >90% WITH NO RESPIRATORY DISTRESS NOTED. PATIENT HAS NOT REQUIRED ANY PAIN MEDICATION AND HAS BEEN RESTING COMFORTABLY WITH HIP PRECAUTIONS IN PLACE. HOURLY ROUNDING OBSERVED. CALL LIGHT WITHIN REACH
[2018-02-07 05:18] LABS: HEMATOCRIT 25.5 % (37.0-47.0); HEMOGLOBIN 8.9 gm/dL (12.0-15.0); MCH 31.7 pg (26.0-34.0); MCHC 34.9 g/dL (28.0-37.0); MCV 90.7 fL (80.0-100.0); MPV 7.5 fl. (7.2-11.1); RBC 2.81 mil/uL (4.20-5.00); RDW-CV 15.4 % (10.5-14.5); WBC 10.1 thou/uL (4.0-11.0)
[2018-02-07 06:05] LABS: CALCIUM 8.7 mg/dL (8.5-10.1); CREATININE 2.4 mg/dL (0.6-1.3); POTASSIUM 5.5 mmol/L (3.5-5.1)
--- NOTE | 2018-02-07 12:01 | NUR ---
ASSSUMED PT CARE THIS AM AT 07;15. PT IS ALERT, AWAKE, ORIENTED X 4 NO COMPLAIN OF PAIN. LAYING IN BED . MADE COMFORTABLE IN CHAIR, VS TAKEN WITHIN NORMAL LIMIT. SINUS TACHY ON THE MONITOR. HR 131. MEDICATIONS TO BE ADMINISTERED IN THE AM SCHEDULED TO ADDRESS ELEVATED HR. CONSUMED HALF OF BREAKFAST. DRESSING ON THE L. SIDE OF HIP IS INTACT AND DRY. CONSITPATION ADDRESSED WITH ADMINISTRATION OF MILK OF MAGNESIA. PT DID HAVE A SMALL BOWEL OF CONSISTANCY HARD AT AROUND 11:40 . WILL CONTINUE TO MONITOR
--- NOTE | 2018-02-07 15:55 | NUR ---
Rehab following for acute rehab. Pt continues to be on 6L o2, working to wean o2 down.
--- NOTE | 2018-02-07 16:38 | EKG ---
[place] [address] ELECTROCARDIOGRAM REPORT Name: RU SHAH Room: [address] ADM IN M.R.#: [id number] Admission: 02/03/18 Attend Phys: Garett Jenkins MD Discharge: Date of : 34 Report #: [id number] THIS REPORT FOR: //name// [facility] Test Date: 2018-02-07 Test Time: 08:42:09 Pat Name: RU SHAH Department: Room: [address] Gender: F Supervisor [employer]: : [id number] Requested By: Flako Coreas Order Number: [id number] Reginald MD: Wolf Maciel Measurements Intervals [place] Rate: 116 P: 0 ME: 29 QRS: 65 QRSD: 107 T: 268 QT: 377 QTc: 524 Interpretive Statements Atrial fibrillation Abnormal T, consider ischemia, diffuse leads Prolonged QT interval Compared to ECG 02/03/2018 19:08:06 T-wave abnormality now present Possible ischemia now present Prolonged QT interval now present Ventricular-paced complex(es) or rhythm no longer present Electronically Signed On 02-07-2018 16:38:44 CDT by Wolf Maciel [email or web address] <ELECTRONICALLY SIGNED> By: Wolf Maciel MD, FACC 02/07/18 [id number] [id number] Wolf Maciel MD, FAC /EPI
[2018-02-08] VITALS: BP 112/61
--- NOTE | 2018-02-08 03:41 | NUR ---
PATIENT PARTIALLY PROGRESSING TOWARDS GOALS: PATIENT HAS BEEN TITRATED TO 5L HFC AND MAINTAINED O2 SATS >92%. PATIENT DENIES PAIN AND DISCOMFORT AND THEREFORE HAS NOT REQUIRED ANY PAIN MEDICATION. PATIENT REMAINS WITH HIP PRECAUTIONS IN PLACE. TOLERATING ACTIVITY WELL TO BEDSIDE COMMODE. SURGICAL DRESSING REMAINS INTACT WITH SCANT DRAINAGE, BORDERS MARKED TO MONITOR AMOUNT. HOURLY ROUNDING OBSERVED. CALL LIGHT WITHIN REACH
[2018-02-08 04:39] VITALS: BP 109/56
[2018-02-08 05:05] LABS: HEMATOCRIT 24.8 % (37.0-47.0); HEMOGLOBIN 8.6 gm/dL (12.0-15.0); MCH 31.2 pg (26.0-34.0); MCHC 34.6 g/dL (28.0-37.0); MCV 90.1 fL (80.0-100.0); MPV 7.5 fl. (7.2-11.1); RBC 2.76 mil/uL (4.20-5.00); RDW-CV 15.2 % (10.5-14.5); WBC 8.8 thou/uL (4.0-11.0)
[2018-02-08 05:25] LABS: CALCIUM 8.6 mg/dL (8.5-10.1); POTASSIUM 4.9 mmol/L (3.5-5.1)
[2018-02-08 08:00] VITALS: BP 95/52
[2018-02-08 11:08] VITALS: BP 96/60
[2018-02-08 16:00] VITALS: BP 101/64
[2018-02-08] MEDS ORDERED: ARTIFICIAL TEA1 EACH OPHTHALMIC (16:26)
[2018-02-08] MEDS ORDERED: DULCOLAX5 MG PO (16:27)
[2018-02-08] MEDS ORDERED: COLACE100 MG PO (16:27)
[2018-02-08] MEDS ORDERED: DUONEB 2.5-0.5 M3 ML INH (16:28)
[2018-02-08] MEDS ORDERED: NORCO 5-325 TA1 EACH PO (16:35)
[2018-02-08] MEDS ORDERED: METAMUCIL PACK3.4 GM PO (16:38)
[2018-02-08] MEDS ORDERED: MILK OF MA2400 MG/10 PO (16:38)
[2018-02-08] MEDS ORDERED: OXYCODONE HCL5 MG PO (16:40)
[2018-02-08] MEDS ORDERED: TYLENOL325 MG PO (16:41)
[2018-02-08] MEDS ORDERED: ONDANSETRON HCL4 M2 PO (16:41)
[2018-02-08] MEDS ORDERED: PREDNISONE 10 M10 M1 PO (16:43)
[2018-02-08 18:21] VITALS: BP 101/64
--- NOTE | 2018-02-08 18:55 | NUR ---
ASSUMED CARE OF PT AT 0730. PT A&0X4 THROUGHOUT SHIFT, FORGETFUL AT TIMES. PT DENIES PAIN THROUGHOUT SHIFT. PT ENCOURAGED TO USE ICE PACK PRN AND AFTER THERAPY. PT PARTICIPATED WITH PHYSICAL AND OCCUPATIONAL THERAPY. TOLERATED WELL. PT UP TO RECLINER FOR ALL MEALS. PT TRACING SR/ST ON THE FELT FINISHER. ON 5L NC SAT UPPER 90'S. DENIES ANY SHORTNESS OF BREATH. PT ENCOURAGED TO USE IS EVERY 1 HOUR. PT UP WITH 1-2 ASSIST WALKER AND GAIT BELT, 50% WTB LLE. PT HAD BOWEL MOVEMENT TODAY. PT HAS ABDUCTOR WEDGE FOR WHEN IN BED. SURGICAL DRESSING CHANGED TODAY. ORDERS RECEIVED FOR PT TO DISCHARGE TO REHAB UPSTAIRS. DISCHARGE ORDERS RECEIVED. DISCHARGE INSTRUCTIONS, SCRIPTS AND FOLLOW UP APPTS COPIED AND PLACED IN CHART. PT TRANSFERRED TO REHAB VIA WHEELCHAIR, ALL BELONGINGS AND CHART WITH NURSING STAFF. REPORT CALLED TO SARITA TAI AT 1850.
[2018-02-08] MEDS ORDERED: ALDACTONE25 MG PO (19:50)
[2018-02-08] MEDS ORDERED: ARTIFICIAL TEAR15 M2 OPHTHALMIC (19:53)
[2018-02-08] MEDS ORDERED: UNICOMPLEX M TA1 TA1 PO (19:55)
[2018-02-08] MEDS ORDERED: TOPROL XL25 MG PO (19:56)
== END 2018-02-08 19:06 | DRG 469 ==
LOC: M.ERS 17:28 → M.TBA-ER 20:19 → M.ORTHSURG 20:19 → M.ICU 02-04 20:07 → M.2W 02-05 12:30
PROVIDERS: Internal Medicine; Nurse Practitioner Family; Orthopaedic Surgery; ADMIT Internal Medicine
PROC: 0SRS0JZ Replacement of Left Hip Joint, Femoral Surface with Synthetic Substitute, Open Approach (ICD-10-PCS; principal; 2018-02-04)
DX: S72.002A Fracture of unspecified part of neck of left femur, initial encounter for closed fracture (principal); I50.33 Acute on chronic diastolic (congestive) heart failure; N17.0 Acute kidney failure with tubular necrosis; J96.21 Acute and chronic respiratory failure with hypoxia; N18.4 Chronic kidney disease, stage 4 (severe); J98.11 Atelectasis; I13.0 Hypertensive heart and chronic kidney disease with heart failure and stage 1 through stage 4 chronic kidney disease, or unspecified chronic kidney disease; E87.1 Hypo-osmolality and hyponatremia; I48.91 Unspecified atrial fibrillation; E87.5 Hyperkalemia; W18.39XA Other fall on same level, initial encounter; E03.9 Hypothyroidism, unspecified; Z95.0 Presence of cardiac pacemaker; Z79.899 Other long term (current) drug therapy; Z79.01 Long term (current) use of anticoagulants; Z85.3 Personal history of malignant neoplasm of breast; Z92.3 Personal history of irradiation; Y93.89 Activity, other specified; Y92.098 Other place in other non-institutional residence as the place of occurrence of the external cause; Y99.8 Other external cause status

== ENCOUNTER 2018-02-08 15:37 | Inpatient (IN) | payer MEDICARE, OTHER ==
[~2018-02-08] VITALS: Ht 177.8 cm; Wt 59.9 kg
[2018-02-08] MEDS ORDERED: ARTIFICIAL TEA1 EACH OPHTHALMIC (16:26)
[2018-02-08] MEDS ORDERED: DULCOLAX5 MG PO (16:27)
[2018-02-08] MEDS ORDERED: COLACE100 MG PO (16:27)
[2018-02-08] MEDS ORDERED: DUONEB 2.5-0.5 M3 ML INH (16:28)
[2018-02-08] MEDS ORDERED: NORCO 5-325 TA1 EACH PO (16:35)
[2018-02-08] MEDS ORDERED: METAMUCIL PACK3.4 GM PO (16:38)
[2018-02-08] MEDS ORDERED: MILK OF MA2400 MG/10 PO (16:38)
[2018-02-08] MEDS ORDERED: OXYCODONE HCL5 MG PO (16:40)
[2018-02-08] MEDS ORDERED: ONDANSETRON HCL4 M2 PO (16:41)
[2018-02-08] MEDS ORDERED: TYLENOL325 MG PO (16:41)
[2018-02-08] MEDS ORDERED: PREDNISONE 10 M10 M1 PO (16:43)
[2018-02-08 19:00] VITALS: BP 98/53
[2018-02-08] MEDS ORDERED: ALDACTONE25 MG PO (19:50)
[2018-02-08] MEDS ORDERED: ARTIFICIAL TEAR15 M2 OPHTHALMIC (19:53)
[2018-02-08] MEDS ORDERED: UNICOMPLEX M TA1 TA1 PO (19:55)
[2018-02-08] MEDS ORDERED: TOPROL XL25 MG PO (19:56)
[2018-02-08 20:09] VITALS: BP 92/49
--- NOTE | 2018-02-08 21:40 | NUR ---
REHAB ADMISSION TOOL COMPLETED. PT ARRIVED ON UNIT AT 1900. 02 SAT 93% ON 3 LITERS NC. A/O X 4. COMANCHE BILATERALLY. DENIES NEED FOR PAIN MEDS. LEFT HIP DRESSING INTACT WITH ABOUT 40% SATURATION OF SEROSANGUOS DRAINAGE. NOTED SOME BLISTERS ON LEFT LOWER EXTREMITY. HAS GENERALIZED EDEMA FROM ABOUT THE WAIST DOWN TO HER FEET. TRANSFERRED FROM BED TO BSC WITH MOD ASSIST OF ONE, GAITBELT, STAND, PIVOT. DID OWN HYGIENE.
[2018-02-09 04:42] LABS: HEMATOCRIT 26.6 % (37.0-47.0); MCH 30.7 pg (26.0-34.0); MCHC 33.7 g/dL (28.0-37.0); MPV 7.1 fl. (7.2-11.1); RBC 2.93 mil/uL (4.20-5.00); RDW-CV 15.6 % (10.5-14.5); WBC 10.8 thou/uL (4.0-11.0)
[2018-02-09 04:50] LABS: CALCIUM 8.7 mg/dL (8.5-10.1); CREATININE 1.7 mg/dL (0.6-1.3)
--- NOTE | 2018-02-09 05:56 | NUR ---
UP X ONE DURING THE NIGHT TO BSC TO VOID. PAIN MED GIVEN X ONE FOR C/O LEFT HIP PAIN WITH RELIEF. HOURLY ROUNDING IN PROGRESS.
[2018-02-09 06:28] LABS: POTASSIUM 4.4 mmol/L (3.5-5.1)
[2018-02-09 07:41] VITALS: BP 103/55
[2018-02-09 08:00] VITALS: BP 103/55
--- NOTE | 2018-02-09 18:09 | NUR ---
PT HAS PARTICIPATED WITH THERAPIES AND CALLS FOR ASSIST TO BATHROOM, AMBULATES WITH WALKER, GAITBELT AND MIN ASSIST OF 1 AT 50% WEIGHT BEARING. DRESSING TO LT HIP CHANGED DUE TO WETNESS AFTER SHOWER THIS AM. PT HAS LARGE BLISTER TO LT LOWER LEG WITH ABD, KERLIX AND CHIN WRAP PLACED PER DR. FLOYD WHO HAS ALSO SEEN BLISTER. PT CONTINUES TO HAVE SEROUS WEEPING AT BACK OF LT LEG WITH PANTS CHANGED X2 DUE TO WETNESS. PT HAS RESTED IN RECLINER AND BED WITH FEET ELEVATED.PT CALLS FOR ASSIST TO BATHROOM AND VOIDS WELL. PT WEARS PANTIES WITH LINER IN THEM AND CHANGES THESE HERSELF.PRN FOR LT HIP PAIN GIVEN THIS AM WITH GOOD EFFECT. AND PT DENIES NEED FOR FURTHER MEDICATION. PT REMAINS ALERT AND ORIENTATED AND PROGRESSES TOWARDS GOALS. HOURLY ROUNDING CONTINUES AND BED AND CHAIR ALARMS IN USE.
[2018-02-09 20:01] VITALS: BP 96/66
--- NOTE | 2018-02-09 20:15 | NUR ---
SITTING UP IN RECLNER WITH LEGS ELEVATED. 02 NC AT TWO LITERS. 2+ BILATERAL LOWER EXT EDEMA NOTED. TOOK MEDS WHOLE WITH WATER. SNACK PROVIDED. PAIN MED GIVEN FOR C/O LEFT HIP PAIN.
--- NOTE | 2018-02-10 05:55 | NUR ---
UP X TWO DURING THE NIGHT TO BSC TO VOID. NO FURTHER C/O PAIN. RECEIVED SCHEDULED BREATHING TX'S. WORE 02 NC DURING THE NIGHT AT 2 LITERS. HOURLY ROUNDING IN PROGRESS.
[2018-02-10 07:54] VITALS: BP 96/57
--- NOTE | 2018-02-10 17:02 | NUR ---
PT HAS BEEN UP TO BATHROOM AND VOIDS WELL BUT NO BM. PT GIVEN COLACE,METAMUCIL AND PRUNE JUICE THIS AM. DRESSING TO LT HIP INTACT WITH CONTAINED DRAINAGE NOTED. PT HAS EDEMA AT INNER BACK OF BILAT LEGS WITH NO WEEPING NOTED THIS AFTERNOON. PT CALLS FOR ASSIST WITH AMBULATION TO BATHROOM WITH GAITBELT AND WALKER AND MIN ASSIST OF 1 AND SLOW STEADY GAIT. PT TO DINNINGROOM FOR MEALS PER W/C.PRN FOR PAIN PLAIN TYLENOL GIVEN THIS AM WITH GOOD EFFECT. PT REMAINS ALERT AND ORIENTATED AND PROGRESSES TOWARDS GOALS.
--- NOTE | 2018-02-10 17:54 | NUR ---
PT HAS CARDIO RECORDER PLUGGED IN AT BEDSIDE WITH OK NOTED.
--- NOTE | 2018-02-10 19:55 | NUR ---
SITTING UP IN RECLINER WITH LEGS ELEVATED. DENIES PAIN. SNACK PROVIDED. 02 NC AT TWO LITERS.
[2018-02-10 20:11] VITALS: BP 104/54
--- NOTE | 2018-02-11 05:36 | NUR ---
UP X ONE DURING THE NIGHT TO THE BATHROOM TO VOID. PAIN MED GIVEN AT 2211 FOR C/O LEFT HIP PAIN WITH RELIEF. HOURLY ROUNDING IN PROGRESS.
[2018-02-11 08:07] VITALS: BP 95/47
--- NOTE | 2018-02-11 10:30 | NUR ---
SW met with pt to complete initial assessment, introduce self, and SW role. Pt alert and oriented. Pt lives in son's home; pt son travels for work. Pt was previously independent with ADLs and mobility; drove and was active. Pt does not have any DME except maybe a cane; pt may need DME ordered at dc. SW to continue to follow to assist with safe dc planning.
[2018-02-11 11:22] VITALS: BP 95/47
--- NOTE | 2018-02-11 11:48 | NUR ---
VSS, ASSUMES CARE IN AM. PERFORMED AND CHARTED ASSESSMENT. PT ON RA. ALERT AND ORIENTED X4. PT DID NOT VOICE PAIN, PT UP IN CHAIR FOR BREAKFAST AND SHORT WALK, PT LEFT IN BED WITH SPEECH THERAPIST. PATIENT'S GOAL: SAFETY, WORK WITH PT AND OT. PATIENT'S CONCERN: KEEPING BANDAGES DRY AND INTACT.
--- NOTE | 2018-02-11 13:03 | NUR ---
Nutrition: Pt admitted to rehab with Lt hip FX. Wt: 135#. Eating 40-90% of Regular diet. RX: Fe, psyllium, MVI, lasix, digoxin, spironolactone. Albumin 3.4, BG 101, BUN 52, creat 1.7. H/o CKD, CHF, HTN, afib. No nutrition interventions needed at this time. Will follow weekly.
[2018-02-11 19:43] VITALS: BP 103/57
--- NOTE | 2018-02-12 05:09 | NUR ---
ASSUMED CARES AT 1920. PT ALERT AND ORIENTED. PLEASANT. S/P LEFT HIP HEMIARTHROPLASTY. PWB LLE. ON O2 2L NC AT NIGHT. TAKES PILLS WHOLE WITHOUT ISSUES. PT INITIALLY GIVEN 1/2 TAB OF NORCO PER REQUEST. BUT NOT LONG AFTER PT REQUESTED TO TAKE OTHER HALF. BLE EDEMA WRAPPED WITH KERLIX. DRESSING TO LEFT HIP SATURATED WITH SEROUS SANGUINOUS DRAINAGE AND WAS CHANGED. SHE IS A MOD ASSIST WITH GAIT BELT AND WALKER. UP TO BATHROOM. WEARS PERIPADS. DOES OWN CARES. NEEDS ASSIST WITH BOTH LEGS INTO BED. USED CALL LIGHT APPROPRIATELY. BED ALARM ON.
[2018-02-12 08:06] VITALS: BP 97/55
--- NOTE | 2018-02-12 11:44 | NUR ---
AM ASSESSMENT AND VITAL SIGNS COMPLETED DOCUMENTED. DRESSING TO LEFT HIP REPLACED AFTER SHOWER, SITE IS WELL APPROXIMATED WITH WILFRED INTACT. WOUND CARE NURSE WILL CE HERE THIS AFTERNOON FOR FURTHER EVALUATION OF EDEMA AND WEEPING OF BOTH LEGS. PT HAS BEEN PLEASANT AND COOPERATIVE. FALL PRECAUTIONS AND HOURLY ROUNDING CONTINUE.
--- NOTE | 2018-02-12 14:37 | NUR ---
WOUND CARE NOTE: CONSULT RECEIVED FOR LOWER EXTREMITY EDEMA, TUBIGRIPS. PATIENT HAS EDEMA TO BILATERAL LOWER EXTREMITIES 3+ PITTING. STRONG PEDAL PULSES BILATERALLY. PLANTAR SURFACE OF BILATERAL FEET ARE DISCOLORED, FEET ARE COOL TO TOUCH. INTACT BLISTER NOTED TO THE ANTERIOR ASPECT OF THE LEFT LOWER EXTREMITY, SEROUS FILLED. ECCHYMOSIS PRESENT TO LEFT THIGH/LEG THIS IS THE SIDE WHERE SHE HAD SURGERY. PATIENT DOES HAVE AREAS ON LEFT LEG THAT IS DRAINING SEROUS FLUID, COULD NOT FIND EXACTLY WHERE THOUGH. BILATERAL PRE-TIBIAL AREA WITH DISCOLORATION, MAY BE CHRONIC. L. CALF 34.5 R. CALF: 32.1 L. ANKLE 21.4 R. ANKLE: 20.9 L. INSTEP 21.5 R. INSTEP 21.4 PLACED LOTION TO INTACT SKIN. APPLIED OPTIFOAM OVER INTACT SEROUS FILLED BLISTER. APPLIED DOUBLE LAYER TUBIGRIP. EDUCATED PATIENT TO KEEP LEGS ELEVATED TO HELP REDUCE SWELLING, COMMUNICATED UNDERSTANDING. EDUCATION PATIENT TO NOTIFY HER NURSE IF THE TUBIGRIPS FEEL TOO TIGHT, COMMUNICATED UNDERSTANDING.
--- NOTE | 2018-02-12 17:03 | NUR ---
NEW ORDER RECEIVED FOR PT TO RECEIVE LYMPHADEMA TREATMENT. TUBI HOT DIE PRESS OPERATOR DRESSINGS REMAIN IN PLACE TO BILATERAL LOWER EXTREMITIES. NO ACUTE DISTRESS, WILL CONTINUE PLAN OF CARE.
[2018-02-12 20:00] VITALS: BP 112/58
--- NOTE | 2018-02-13 05:02 | NUR ---
ASSUMED CARES AT 1920. PT ALERT AND ORIENTED. PLEASANT. TAKES PILLS WHOLE WITHOUT ISSUES. HAS ON O2 2L NC AT NIGHT. DENIED ANY NEED FOR PAIN MEDS. BLE TUBIGRIPS DUE TO EDEMA. ADDITIONAL OPTIFOAM APPLIED TO POSTERIOR LEFT LEG DUE TO WEEPING. DRESSING TO LEFT HIP SATURATED WITH SEROUS SANGUINOUS DRAINAGE AND SO WAS CHANGED. PT IS A MIN ASSIST WITH GAIT BELT AND WALKER. UP TO BATHROOM. DOES OWN CARES. WEARS PERIPAD. PT MOD ASSIST WITH TRANSFERS SHE NEEDS ASSIST WITH BOTH LEGS INTO BED. SLEPT WELL MOST OF THE NIGHT. CALL LIGHT IN REACH.
[2018-02-13 05:23] LABS: HEMATOCRIT 28.4 % (37.0-47.0); HEMOGLOBIN 9.5 gm/dL (12.0-15.0); MCH 30.6 pg (26.0-34.0); MCHC 33.4 g/dL (28.0-37.0); MCV 91.5 fL (80.0-100.0); MPV 6.3 fl. (7.2-11.1); NUCLEATED RBCS 0 /100WBC; PLATELET COUNT* 353 thou/uL (150-400); RDW-CV 15.9 % (10.5-14.5); WBC 10.3 thou/uL (4.0-11.0)
[2018-02-13 05:36] LABS: ALBUMIN 2.6 g/dL (3.4-5.0); CALCIUM 8.3 mg/dL (8.5-10.1); CREATININE 1.4 mg/dL (0.6-1.3); POTASSIUM 4.3 mmol/L (3.5-5.1); TOTAL BILIRUBIN 0.9 mg/dL (<0.1-1.0); TOTAL PROTEIN 5.4 g/dL (6.4-8.2)
[2018-02-13 06:00] LABS: ABSOLUTE LYMPHOCYTES 0.8 thou/uL (0.8-5.3); ABSOLUTE MONOCYTES 0.1 thou/uL (0.0-1.2); ABSOLUTE NEUTROPHILS 9.4 thou/uL (1.6-8.1); ANISOCYTOSIS 1+; OVALOCYTES 1+; PLATELET ESTIMATE ADEQUATE; POIKILOCYTOSIS 1+
[2018-02-13 07:41] VITALS: BP 95/65
--- NOTE | 2018-02-13 13:04 | NUR ---
PT CARE ASSUMED THIS AM, ASSESSMENT AND VITAL SIGNS COMPLETED DOCUMENTED. PT IS VERY PLEASANT AND COOPERATIVE, PARTICIPATES WITH PT, OT AND ST. DRESSING TO LEFT HIP CHANGED AFTER SHOWER. LEFT THIGH CONTINUES TO WEEP. PT WILL BE SEEN FOR POSSIBLE LYMPHADEMA THERAPY THIS AFTERNOON. PT HAS BEEN COMPLIANT WITH ELEVATING BOTH LEGS WHEN NOT IN THERAPY. FALL PRECAUTIONS AND HOURLY ROUNDING CONTINUE.
--- NOTE | 2018-02-13 15:57 | NUR ---
SW met with pt to review team conference summary. Plan for pt to continue therapies and for team to reassess pt length of stay during team conference next week, Tuesday 02/20. Pt in agreement with plan and pt said that her sons would agree as well. SW to continue to follow to assist with safe dc planning.
--- NOTE | 2018-02-13 18:25 | NUR ---
THE LYMPHADEMA OT CAME IN THIS AFTERNOON AND VOICED CONCERN R/T THE EXTENSIVE BRUISING. DR BENDER NOTIFIED, US OF LEFT LOWER LEG ORDERED AND WAS NEGATIVE FOR A DVT. ROSE, OT WILL RETURN TOMORROW TO WRAP HER LEGS. NO ACUTE DISTRESS, WILL CONTINUE TO MONITOR.
--- NOTE | 2018-02-13 19:50 | NUR ---
SITTING UP IN RECLINER WITH LEGS ELEVATED. LEFT LEG DRAINING COPIUS AMOUNTS OF YELLOW DRAINAGE. PAIN MED GIVEN FOR C/O LEFT HIP PAIN. NOTICED PT'S MASCARA WAS SMUDGED. PT INITIALLY DENIED CRYING THEN ADMITTED TO HAVING FEELINGS OF NOSTALGIA WHEN SONS VISITED EARLIER. DECLINED OFFER OF A SNACK.
[2018-02-13 20:06] VITALS: BP 100/59
--- NOTE | 2018-02-14 05:33 | NUR ---
UP X ONE DURING THE NIGHT TO THE BATHROOM TO VOID. DOES OWN HYGIENE AND CLOTHING ADJUSTMENTS. NEEDS ASSIST WITH LIFTING LEGS INTO THE BED. SPIRITS GOOD. HOURLY ROUNDING IN PROGRESS.
[2018-02-14 07:47] VITALS: BP 91/52
--- NOTE | 2018-02-14 19:58 | NUR ---
pt has called for assist with ambulation to bathroom and ambulates with walker,gaitbelt and min assist of 1. pt continues to have large amount of edema to bilat legs with brusing noted to back of lt leg and serous drainage through day. rt.leg has edema with no drainage noted. here this afternoon and has examined legs and buttox. dressing to lt hip remains dry and intact. lymphoedema ot has been here this evening and wrapped lt leg foot to thigh with directions for care given. pt denies pain or discomfort with wrap.pt remains alert and orientated and progresses towards goals. hourly rounding continues.
[2018-02-14 20:05] VITALS: BP 109/62
--- NOTE | 2018-02-14 20:15 | NUR ---
SITTING UP IN RECLINER RESTING QUIETLY WITH EYES CLOSED. NOT QUITE ASLEEP. DENIES DISCOMFORT. CHIN WRAP ON LEFT LEG DRY/INTACT. VISIBLE PART OF LEFT HIP DRESSING DRY/INTACT. TOOK MEDS WHOLE WITH WATER. DECLINED OFFER OF HS SNACK.
--- NOTE | 2018-02-15 06:04 | NUR ---
ABLE TO SLEEP LAST NIGHT WITHOUT OXYGEN. UP X TWO DURING THE NIGHT TO THE BATHROOM TO VOID. MOM GIVEN THIS AM PER REQUEST. CURRENTLY SITTING IN RECLINER WITH LEGS ELEVATED. DENIES NEED FOR PAIN MED. HOURLY ROUNDING IN PROGRESS.
[2018-02-15 08:00] VITALS: BP 97/58
--- NOTE | 2018-02-15 18:30 | NUR ---
PT VERY PLEASANT AND COOPERATIVE, PARTICIPATED IN ALL THERAPIES. LYMPHADEMA WRAPS REMAIN IN PLACE, NO COMPLAINTS TO INDICATE THEY ARE CAUSING ANY PROBLEMS. FALL PRECAUTIONS AND HOURLY ROUNDING CONTINUE.
[2018-02-15 20:12] VITALS: BP 98/52
--- NOTE | 2018-02-16 06:03 | NUR ---
ASSUMED CARE AT 1930. PATIENT S/P LT HIP FX. IN RECLINER UNTIL AROUND 1999 THEN TO BED. UP WITH ONE, GAIT BELT, WALKER. NEEDS A LITTLE HELP GOING FROM LYING TO SITTING. ABLE TO RISE WITHOUT ASSIST. MEDICATED FOR PAIN. DRESSING C/D/I. LYMPHADEMA DRESSINGS C/D/I. DECLINED OXYGEN THIS PM. TURNS SELF IN BED. CALL LITE IN REACH. BED ALARM ON. HOURLY ROUNDS CONTINUE.
[2018-02-16 07:30] VITALS: BP 95/51
--- NOTE | 2018-02-16 16:03 | NUR ---
ASSUMED CARE AT 0730. ALERT ORIENTED PLEASANT COOPERATIVE. HX OF L HIP FX PARTIAL WEIGHT BEARING L FOOT. TRANSFERRED WITH G BELT WALKER FROM W/C TO TOILET IN BR TO VOID. ABLE TO DO HYGEINE AND CLOTHING ADJUSTMENTS. USES CALL LIGHT APPROPRIATELY FOR ASSISTANCE. LYMPHEDEMA WRAPS ON BILATERAL LOWER EXTREMETIES. ELEVATED WHEN IN RECLINER. MEDICATED X 1 FOR L HIP PAIN THIS A.M,.
[2018-02-16 20:32] VITALS: BP 102/53
--- NOTE | 2018-02-17 05:07 | NUR ---
ASSUMED CARES AT 1920. PT ALERT AND ORIENTED. PLEASANT. DENIED ANY KEARNS, DIZZINESS, N/V. C/O PAIN TO LEFT HIP. OXY IR GIVEN. TAKES PILLS WHOLE WITHOUT ISSUES. PWB LLE. SHE IS A MOD ASSIST WITH TRANSFERS. STILL WANTS HELP WITH LEGS INTO BED. SBA WITH GAIT BELT WITH AMBULATION. UP TO BATHROOM FEW TIMES. DOES OWN CARES. CONTINUES TO COMPRESSION WRAPS TO LLE. DRESSING TO LEFT HIP INTACT. SLEPT WELL MOST OF THE NIGHT. USED CALL LIGHT APPROPRIATELY. ALARMS ON.
[2018-02-17 08:00] VITALS: BP 90/51
--- NOTE | 2018-02-17 14:52 | NUR ---
ASSUMED CARE AT 0730. ALERT ORIENTED PLEASANT COOPERATIVE. HX OF L HIP FX PARTIAL WEIGHT BEARING LLE. TRANSFERS WITH SBA G BELT WALKER FROM BED TO RECLINER. DENIES NEED FOR PAIN MED. FEEDS SELF AND TAKES MEDS WITHOUT DIFFICULTY BUT DID STATE DIFFICULTY WITH SWALLOW AT BREAKFAST. TOOK HER LONGER TO EAT SHE STATES THIS HAS BEEN SOMETHING HAPPENING LAST WEEK OR TWO. LYMPHEDEMA WRAPS ON INTACT BLES WILL REMOVE TODAY. DRESSING D/I TO L HIP. USES CALL LIGHT APPROPRIATELY FOR ASSIST. HAS HAD NUMEROUS VISITORS. UP IN RECLINER WITH BLES ELEVATED.
--- NOTE | 2018-02-17 18:10 | NUR ---
PTS. L LYMPHEDEMA WRAP REMOVED LEGS CLEANSED LOTIONED PICTURES TAKEN OF L LEG DRESSINGS CHANGED. TUBIGRIPS APPLIED.
[2018-02-17 19:30] VITALS: BP 85/47
[2018-02-17 21:00] VITALS: BP 102/63
--- NOTE | 2018-02-18 05:12 | NUR ---
ASSUMED CARES AT 1920. PT ALERT AND ORIENTED. PLEASANT. DENIED ANY NEED FOR PAIN MEDS. NO N/V, DIZZINESS, KEARNS OR SOA. ON O2 2L NC AT NIGHT. DID TAKE PILLS WHOLE WITHOUT ISSUES. HAD ON BLE TUBIGRIPS. PT C/O TIGHTNESS AND DISCOMFORT TO LEGS AND SO THESE WERE REMOVED. POSTERIOR LEFT LEG HAD SOME ADDITIONAL WEEPING. OPTIFOAM APPLIED. SWELLING TO LEFT LEG HAS DECREASED AFTER COMPRESSION WRAP. DRESSING TO LEFT HIP INTACT. SHE IS A SBA WITH GAIT BELT AND WALKER. UP TO BATHROOM. DOES OWN CARES. SLEPT WELL. CALL LIGHT IN REACH AND BED ALARM ON.
[2018-02-18 08:00] VITALS: BP 86/51
--- NOTE | 2018-02-18 15:05 | NUR ---
NILAY met with pt and pt dtr Sylvia (number [phone]) to follow up to continue discussing safe dc planning. Sylvia was concerned for pt to dc home if pt brother is out of town on business for weeks at a time. Pt said that Jimmy will be home for at least a month or 2 and that her other son will be retiring to help be with pt all of the time. SW presented to the pt that she may need more assistance and supervision than her sons could provide and pt felt that she would be able to be safe at home. Pt dtr Sylvia was still not convinced that pt would be ready or safe and SW mentioned possibility of private duty, explanation of care needed/team's recommendations to be provided, and SNF if needed. NILAY called pt son Jimmy who said he is on business trip at least one more week. Jimmy mentioned his brother plans to take parental leave/retire to be with pt and that eventually all the children could take turns providing care for pt...Jimmy mentioned even possibly paying Sylvia to be a caregiver. However, Jimmy mentioned that a SNF or another facility where pt can have more time to heal and then rehab to home would be the plan that he feels is best. SW to continue to follow and to present in team on Sunday. SW to follow up with pt and pt family to continue to assist with safe dc planning.
--- NOTE | 2018-02-18 15:37 | NUR ---
ASSUMED CARE AT 0730. ALERT ORIENTED PLEASANT COOPERATIVE. HX OF L HIP FX PARTIAL WEIGHT BEARING LLE. DRESSING C/D/I TO L HIP. OPTIFOAM DRESSINGS APPLIED TO AREAS LLE AFTER SHOWER. PT. REQUESTED TO LEAVE TUBIGRIPS OFF THEY ARE TIGHT AND SEEM TO CUT INTO LEGS AT TIMES. PARTICIPATING IN THERAPIES THROUGHOUT THE DAY. MEDICATED X 1 WITH PRN PAIN MED BEFORE THERAPIES START THIS A.M. NO FURTHER C/O OF DIFFICULTY WITH SWALLOW TODAY. TRANSFERS WITH SBA G BELT AND PARTIAL WEIGHT BEARING LLE. SITTING UP IN RECLINER AT BEDSIDE WITH FEET ELEVATED. SOME OOZING FROM L THIGH AREA OPTIFOAM APPLIED.
[2018-02-18 20:05] VITALS: BP 106/50
--- NOTE | 2018-02-19 07:00 | NUR ---
ASSUMED CARES AT 1920. PT ALERT AND ORIENTED. PLEASANT. TAKES PILLS WHOLE WITHOUT ISSUES. DENIED ANY NEED FOR PAIN MED. SBA WITH GAIT BELT AND WALKER. UP TO BATHROOM. BLE EDEMA. OPTIFOAM APPLIED TO WEEPING AREA TO BACK OF LEFT LEG. DRESSING TO LEFT HIP CHANGED. EDUCATED PT THAT IMPORTANCE OF TRYING TO KEEP TUBIGRIPS ON MUCH POSSIBLE. PT UNDERSTOOD. SLEPT VERY WELL. CALL LIGHT IN REACH AND BED ALARM ON.
[2018-02-19 08:10] VITALS: BP 98/55
--- NOTE | 2018-02-19 16:31 | NUR ---
PATIENT A&OX4, ROOM AIR, 2L O2 VIA NC AT NOC. UP WITH STAND BY ASSIST WITH GAITBELT AND WALKER, STEADY GAIT. PARTIAL WEIGHT BEARING TO LEFT LEG, TOLERATING WELL. LEFT LEG LYMPHADEMA, WITH WEEPING/SEEPAGE BLISTERS, OPTIFOAM CHANGED. BILATERAL TUBA PATENT LITIGATION ASSOCIATE ON, PATIENT DOES NOT LIKE WEARING TUBA PATENT LITIGATION ASSOCIATE. NO C/O PIAN/N/V. NO OTHER CONCERNS AT THIS TIME. APPROPRIATE AND COOPORATIVE WITH CARE.
[2018-02-19 20:00] VITALS: BP 89/51
--- NOTE | 2018-02-19 20:05 | NUR ---
RESTING QUIETLY IN RECLINER WITH LEGS ELEVATED. DENIES DISCOMFORT. DECLINED OFFER OF A SNACK. DID TAKE MOM ALONG WITH COLACE.
[2018-02-20 05:16] LABS: HEMATOCRIT 28.6 % (37.0-47.0); HEMOGLOBIN 9.7 gm/dL (12.0-15.0); MCH 31.4 pg (26.0-34.0); MCHC 33.9 g/dL (28.0-37.0); MCV 92.6 fL (80.0-100.0); MPV 6.3 fl. (7.2-11.1); RBC 3.09 mil/uL (4.20-5.00); RDW-CV 17.1 % (10.5-14.5); WBC 7.1 thou/uL (4.0-11.0)
--- NOTE | 2018-02-20 05:33 | NUR ---
UP X TWO DURING THE NIGHT TO THE BATHROOM TO VOID. BEEN UP IN CHAIR SINCE 0500. SETS ALARM ON CELL TO GET UP AT 0500 WHICH IS HER PATTERN AT HOME. NO C/O DISCOMFORT. HOURLY ROUNDING IN PROGRESS.
[2018-02-20 05:42] LABS: ALBUMIN 2.5 g/dL (3.4-5.0); CALCIUM 8.2 mg/dL (8.5-10.1); CREATININE 1.3 mg/dL (0.6-1.3); POTASSIUM 4.1 mmol/L (3.5-5.1); TOTAL BILIRUBIN 0.9 mg/dL (<0.1-1.0); TOTAL PROTEIN 5.2 g/dL (6.4-8.2)
[2018-02-20 08:00] VITALS: BP 98/58
--- NOTE | 2018-02-20 17:18 | NUR ---
NILAY and Dr Jaffe met with pt to review team conference summary and discuss team's recommendation for pt to dc to SNF with dc date on Sunday 02/25. Pt understanding of plan. NILAY provided list of SNF options and NILAY called and spoke with pt lonnie Marquez to review team conference summary and SNF plan as well. Pt/family in agreement with plan and want NILAY to send referral to [facility] ([place], [place]) as they have needed Lymphedema therapy. NILAY to follow to assist with finalizing safe dc plan.
--- NOTE | 2018-02-20 18:57 | NUR ---
PT CALLS FOR ASSIST TO BATHROOM AND AMBULATES WELL WITH GAITBELT WALKER AND SBA OF 1. PT DENIES PAIN. WILFRED REMOVED FROM LT HIP THIS AM BY . MAURA ALEMAN'S WRAPPED BY LYMPHODEMIA THERAPIST TO BE LEFT ON UNTILL TOMORROW. PT REMAINS ALERT AND ORIENTATED AND PROGRESSES TOWARDS GOALS. HOURLY ROUNDING CONTINUES.
[2018-02-20 20:12] VITALS: BP 98/57
--- NOTE | 2018-02-21 01:14 | NUR ---
ASSUMED CARE @ 1934-.SITS IN RECLINER W/ LE'S UP & ON PHONE.SBA FOR TOILETING.PWB LEFT LE OBSERVED.COMPRESSION STOCKINGS IN PLACE FROM THIGHS TO FEET.ABLE TO LIFT LEFT LE INTO USING GAIT BELTBED ALARM PUT ON @ 2139.HOB UP. WANTS SIDERAILS X2 UP & BATHROOM LIGHTS ON ALL NIGHT.BP USUALLY LOW @ 2011- /57.ON HOURLY ROUNDS.DIAMOND SAWER DOING ODD HOUR ROUNDS.
--- NOTE | 2018-02-21 05:25 | NUR ---
sleeping since 2199.BRP W/ SBA X4.REFUSED HS SNACK.AWAKE FOR BRP ONLY.
--- NOTE | 2018-02-21 07:27 | NUR ---
PER PATIENT VERBALIZED TO ONE OF NURSE'S THAT @ AROUND 0200 WHEN AWAKE-HAS BURNING TOP OF FEET.BUT MESSAGE WAS NOT GIVEN TO RN TAKING CARE OF PATIENT. BUT PER PATIENT ALSO-WHEN AMBULATING TO/FROM BATHROOM-BURNING SENSATION WENT AWAY @ 0200.THEN,BURNING SENSATION CAME BACK @ 0505-BUT WENT AWAY WHEN AMBU YAHIR TO/FROM BATHROOM.SO,WANTS TO SIT IN RECLINER @ 0510 W/LE'S UP.BURNING SENSATION TOP OF FEET -RESOLVED W/ LE'S UP IN RECLINER.
[2018-02-21 08:00] VITALS: BP 88/58
--- NOTE | 2018-02-21 20:00 | NUR ---
SITTING UP IN RECLINER WITH LEGS ELEVATED. DENIES DISCOMFORT. CHIN WRAP AROUND LEGS DRY/INTACT. HAS BILATERAL LYMPHEDEMA WRAPS. SNACK PROVIDED.
[2018-02-21 20:05] VITALS: BP 93/57
--- NOTE | 2018-02-22 06:02 | NUR ---
UP X ONCE DURING THE NIGHT AND EARLY THIS MORNING TO THE BATHROOM TO VOID. AMBULATES TO THE BATHROOM WITH SBA, GAITBELT, WALKER. DOES OWN HYGIENE AND CLOTHING ADJUSTMENTS. NO C/O DISCOMFORT THIS MORNING. SITTING UP IN RECLINER WITH LEGS ELEVATED. HOURLY ROUNDING IN PROGRESS.
[2018-02-22 08:00] VITALS: BP 96/64
--- NOTE | 2018-02-22 10:58 | NUR ---
NILAY provided SNF referral to Pily with [facility] and Pily provided acceptance of pt to SNF on Sunday 02/25. Pt and pt family in agreement with plan. NILAY to continue to follow to assist with finalizing safe dc plan. Pt to be transported to SNF by hernan van arranged by facility, NILAY to discuss with Jacey exact timing of transport on Sunday.
--- NOTE | 2018-02-22 16:27 | NUR ---
ASSUMED CARE OF PATIENT AFTER MORNING REPORT. ALERT AND ORIENTED X4. ASSESSMENT COMPLETED AND CHARTED. VSS ON ROOM AIR. PATIENT HAS WORKED WELL WITH THERAPIES TODAY. UP, DRESSED AND GROOMED WELL WITH OT. PATIENT HAD MEALS IN THE DINING ROOM TODAY AND IS EATING AND DRINKING WELL. NO COMPLAINTS OF PAIN, NAUSEA, OR SOA THIS SHIFT. RESTING COMFORTABLY IN THE CHAIR AT THIS TIME, CALL LIGHT IS WITHIN REACH AND HOURLY ROUNDS MAINTAINED. NURSING WILL CONTINUE TO MONITOR.
[2018-02-22 20:04] VITALS: BP 87/48
[2018-02-22 20:09] VITALS: BP 90/42
--- NOTE | 2018-02-23 01:24 | NUR ---
ASSUMED CARE @ 1937-02/22-SUNDAY.SITS IN RECLINER W/ LE'S UP.ON HER TABLET. SBA BY TWISTING FRAME FIXER TO BED @ 0 AFTER BRP.HOB UP.WANTS LIGHTS ON LEFT IN BATHROOM ALL NIGHT.BED ALARM PUT ON @ 2229.SEE POSITION CHANGE CHARTING.ON HOURLY ROUNDS. TWISTING FRAME FIXER DOING ODD HOUR ROUNDS.
--- NOTE | 2018-02-23 05:09 | NUR ---
SLEEPING SINCE 2199.BRP X2 ONLY W/ SBA.TOOK ALL PEACHES HS SNACK.WEARS YOLIE PAD.
[2018-02-23 07:38] VITALS: BP 89/56
--- NOTE | 2018-02-23 17:59 | NUR ---
PT CALLS FOR ASSIST TO BATHROO AND AMBULATES WITH GAITBELT,WALKER AND SBA OF 1. BILAT LEG WRAPS REMOVED THIS AM BY OT WITH WRAPPING KEPT FOR PT TO TAKE HOME. PT HAS SMALL AREA AT BACK OF LT THIGH WITH SMALL DRAINAGE ON MEPLIX REMOVED WITH NEW PAD REPLACED. PT REMAINS ALERT AND ORIENTATED AND PROGRESSES TOWARDS GOALS. PT EATS MEALS IN DINNINGROOM AND IS CONTINENT OF B+B. HOURLY ROUNDING CONTINUES.
[2018-02-23 20:01] VITALS: BP 96/56
--- NOTE | 2018-02-24 05:05 | NUR ---
ASSUMED PT CARE AT 1930. PT ALERT AND ORIENTED X4, POLITE AND COOPERATIVE WITH CARES. S/P LEFT HIP FRACTURE. PT CALL FOR ASSIST TO BATHROOM, AMBULATES WITH GAIT BELT, WALKER AND SBA OF ONE. NO LEG WRAPS, PT FEELS LEGS ARE ALMOST BACK TO HER NORMAL. SMALL AREA ON BACK OF LEFT THIGH WITH MEPILEX. NO PRN PAIN MEDICATIONS GIVEN THIS SHIFT. PT CONTINENT OF BOWEL AND BLADDER. PT SLEPT WELL OVERNIGHT. CALL LIGHT AND FREQUENTLY USED ITEMS WITHIN REACH. HOURLY ROUNDING IN PROGRESS, WILL CONTINUE TO MONITOR.
[2018-02-24 07:28] VITALS: BP 98/62
--- NOTE | 2018-02-24 18:40 | NUR ---
pt calls for assist to bathroom adn remains continent of b+b. pt ambulates with gaitbelt,walker and sba to dinningroom for meals and enjoys visiting with others. pt denies pain and keeps legs elevated when in recliner. dressing removed from lt daugherty with old blister having resolved and no drainage noted, area left carlos manuel. dressing to back of lt thigh remains intact with no drainage seen through it.edema is decreased except at inner back of bilat knees. pt continues to have brusing of lt outter thigh to knee slowley resolving. pt remains alert and orientated and is planning discharge tomorrow to other facility. hourly rounding continues.
[2018-02-24 20:28] VITALS: BP 90/51
--- NOTE | 2018-02-25 04:54 | NUR ---
ASSUMED PT CARE AT 1930. PT ALERT AND ORIENTED X4, POLITE AND COOPERATIVE WITH CARES. S/P LEFT HIP FRACTURE. PT CALLS FOR ASSIST TO BATHROOM, AMBULATES WITH GAIT BELT, WALKER AND SBA OF ONE. NO LEG WRAPS. PT DENIES PAIN, KEEPS LEGS ELEVATED WHNE IN RECLINER. MEPILEX TO BACK OF LEFT THICH INTACT WTH NO DRAINAGE NOTED. PT CONTINENT OF BOWEL AND BLADDER. SLEPT WELL OVERNIGHT. USES CALL LIGHT APPROPRIATELY. PLAN IS TO DISCHARGE TODAY TO ANOTHER FACILITY. HOURLY ROUNDING IN PROGRESS, WILL CONTINUE TO MONITOR.
--- NOTE | 2018-02-25 10:15 | NUR ---
NILAY called Pily with [facility] [phone] and confirmed pt to dc to SNF today, Sunday, 02/25; Pily arranged transportation for 14:00. SW to fax the final dc orders and med list to fax number [phone]. NILAY called and spoke with pt son about the specifics of transport time and pt and pt family in agreement with plan with no questions or concerns.
--- NOTE | 2018-02-25 10:49 | NUR ---
ASSUMED CARE AT 0730. ALERT ORIENTED PLEASANT COOPERATIVE. HX OF L HIP FX PWB LLE. TRANSFERS WITH SBA G BELT WALKER AND AMBULATES TO BR TO VOID ABLE TO DO HYGEINE AND CLOTHING ADJUSTMENTS. USES CALL LIGHT APPROPRIATELY FOR ASSIST UP IN RECLINER WITH BLES ELEVATED, DRESSINGS CHANGED TO LLE HEALING X 2. FEEDS SELF AND TAKES MEDS WHOLE WITHOUT DIFFICULTY WITH WATER. DENIES PAIN OR REQUESTS. BED CHAIR ALARM FOR PT. SAFETY. PARTICIPATING IN THERAPIES.
[2018-02-25] MEDS ORDERED: LASIX 20 MG TAB20 MG PO (12:40)
[2018-02-25] MEDS ORDERED: SPIRONOLACTONE25 MG PO (12:44)
[2018-02-25 12:49] VITALS: BP 105/69
[2018-02-25] MEDS ORDERED: K-DUR10 MEQ PO (12:59)
[2018-02-25 13:20] VITALS: BP 105/69
[2018-02-25 13:45] VITALS: BP 105/69
--- NOTE | 2018-02-25 13:52 | NUR ---
PT. DISCHARGED TO [facility] [place] AT 1345 PER W/C VAN. REPORT CALLED TO [facility] [employer] BELONG[employer] SENT WITH FAMILY EXCEPT FOR A SUITCASE AND A BAG WITH PERSONAL ITEMS.
--- NOTE | 2018-02-25 13:59 | NUR ---
PACKET SENT WITH PT. 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
--- NOTE | 2018-03-05 20:30 | H ---
[place] [address] HISTORY AND PHYSICAL Name: RU SHAH Room: [address] M.R.#: [id number] Admission: 02/08/18 Attend Phys: Tika Jaffe DO Discharge: 02/25/18 Date of : 34 Report #: [id number] THIS REPORT FOR: //name// CC: Tika Diaz DATE OF SERVICE: 02/08/2018 HISTORY OF PRESENT ILLNESS: This is an 87-year-old female admitted to inpatient rehabilitation to facilitate safe discharge home, status post left hip fracture, status post left hemiarthroplasty with residual 50% weightbearing on the left lower extremity and . The patient has a history of CHF, atrial fibrillation, hypothyroid and breast cancer that had a fall sustaining a left hip fracture, admitted on 02/08/2018. In the postoperative period, she did have some acute respiratory failure and was sent to the ICU until stabilized, but has been participating in physical and occupational therapy as well as speech and language pathology. Previous level of function was modified independent to independent with activities of daily living. Current level of function is minimum to moderate assistance 1-2 depending on therapy, activity and time of day. Estimated length of stay is 10-14 days with discharge disposition to the home setting. She has multiple medical comorbidities including a history of anasarca, atrial fibrillation, lower extremity cellulitis, peripheral vascular disease, heart failure and history of falls. No significant changes since the preadmission screening. PAST MEDICAL HISTORY: Left arm fracture, bilateral lower extremity skin grafts, tumor removal from the left breast, conization of cervix, facelift, history of macular degeneration, atrial fibrillation, hypothyroid, pacemaker. FAMILY HISTORY: Significant for cardiac disease. SOCIAL HISTORY: No tobacco, alcohol or illicit drug use. MEDICATIONS: Reviewed and reconciled by myself and are available in the MAR. REVIEW OF SYSTEMS: A 14-point review of systems is done today, is negative except as mentioned in HPI. Specifically, no fever, chest pain, shortness of breath, abdominal pain or distention. ALLERGIES: No known drug allergies. PHYSICAL EXAMINATION: GENERAL: Alert, oriented, no apparent distress. VITAL SIGNS: Reviewed and are stable. HEENT: Atraumatic, normocephalic. Pupils equal, round, [place] [address] HISTORY AND PHYSICAL Name: RU SHAH Room: [address] IN [facility]#: [id number] Admission: 02/08/18 Attend Phys: Tika Jaffe DO Discharge: 02/25/18 Date of : 32 Report #: [id number] ABDOMEN: Soft, nontender, nondistended. NEUROLOGIC: Cranial nerves 2-12 grossly intact. No focal neuro deficits. SKIN: Warm and dry. There is mottling in the bilateral lower extremity with some blistering on the left lower extremity, previous blistering on the right lower extremity and some evidence of some left medial thigh possible cellulitis, bilateral lower extremity edema. Incision is freshly dressed and not visualized at this time. LUNGS: Clear and symmetric bilaterally. ASSESSMENT: 1. An 87-year-old female status post mechanical fall on 02/03/2018 sustaining a left displaced hip fracture status post left beryl hip on 02/04/2018. 2. Multiple medical comorbidities requiring acute medical care. 3. Recent acute on chronic hypoxic respiratory failure with need for ICU placement, currently being weaned on O2. PLAN: 1. Admission to inpatient rehabilitation. 2. PT, OT, speech, language, case management, nursing and HIMS to make evaluations and recommendations. 3. Plan of care is pending and we will team her weekly. 4. Medications were reviewed and reconciled by myself and are available in the MAR. 5. We will have wound care see her for bilateral lower extremities and in the meantime, we will do Tubigrip versus Onur wraps for the blistering on the lower extremities and the edema. <ELECTRONICALLY SIGNED> By: Tika Jaffe DO 03/05/18 2030 1310 [id number] Jaffe DO /nt
--- NOTE | 2018-03-05 20:30 | PLAN ---
[address] [address] REHAB UNIT PLAN OF CARE Name: RU SHAH Room: [address] IN ..#: [id number] Admission: 02/08/18 Attend Phys: Tika Jaffe DO Discharge: 02/25/18 Date of : 34 Report #: [id number] THIS REPORT FOR: //name// CC: Tika Diaz OVERALL PLAN OF CARE This is an 87-year-old female admitted to inpatient rehabilitation to facilitate safe discharge to the home setting, status post fall from home sustaining a mechanical left hip fracture with weightbearing 50% on left lower extremity as well as hip precautions. Previous level of function was at modified independent to independent with activities of daily living. Current level of function is minimum to moderate assistance of 1-2 depending on therapy, activity and time of day. ESTIMATED LENGTH OF STAY: Is 14-18 days with discharge disposition to the home setting where she has supportive family. She did in the postoperative period developed some hypoxic respiratory failure requiring ICU stay. She also has multiple medical comorbidities. MEDICAL PROGNOSIS: Stable. REHABILITATION PROGNOSIS: Good. Physical Therapy will see the patient 60-90 minutes per day, 5 days per week, working on upper and lower body strength, balance, coordination, navigation. Occupational Therapy will work with the patient 60-90 minutes per day, 5 days per week, working on upper and lower body strength, balance, coordination, navigation, bathing, dressing, and toileting. Speech Language pathology will work with the patient 30-90 minutes per day, 5 days per week, working on memory, comprehension, expression, and social interaction. This is an overall plan of care, it may change from time to time. We will team weekly and make changes to plan of care as needed. <ELECTRONICALLY SIGNED> By: Tika Jaffe DO 03/05/18 2030 1442 Gail Jaffe DO /nt
--- NOTE | 2018-03-06 14:26 | D ---
[address] [address] DISCHARGE SUMMARY Name: RU SHAH Room: [address] IN M.R.#: [id number] Admission: 02/08/18 Attend Phys: Tika Jaffe DO Discharge: 02/25/18 Date of : 34 Report #: [id number] THIS REPORT FOR: //name// CC: Tika Torrese Briannacharliedel DATE OF SERVICE: 02/25/2018 DISCHARGE DIAGNOSES: 1. Left hip fracture. 2. Weightbearing 50% on the left lower extremity as well as hip precautions. 3. Bilateral lower extremity cellulitis and edema with lymphedema, occupational therapist following. MEDICATIONS: Reviewed and reconciled by myself and are available in the MAR. The patient will need ongoing wound care and ongoing subacute rehabilitation and is being discharged to a skilled level of care where she can update in both of those. She did make gains during the stay. She would need 24/7 supervision due to safety issues, especially with weightbearing and wound care. Unfortunately, her family was not able to initiate that at this time. Discharge PT, OT, speech, language, and case management. DISCHARGE PHYSICAL EXAMINATION: GENERAL: Alert, oriented, in no apparent distress. VITAL SIGNS: Reviewed and are stable. HEENT: Atraumatic, normocephalic. Pupils equal, round, reactive. ABDOMEN: Soft, nontender, nondistended. NEUROLOGIC: Cranial nerves 2-12 are grossly intact. No focal neuro deficits, 5/5 strength in bilateral upper and lower extremities. SKIN: Warm and dry. Incision on the left lateral thigh is intact cellulitis and edema is much improved. <ELECTRONICALLY SIGNED> By: Tika Jaffe DO 03/06/18 1426 1309 [id number] Jaffe DO /nt
== END 2018-02-25 13:45 | DRG 535 ==
LOC: M.REH 15:37
PROVIDERS: Internal Medicine; ADMIT Physical Medicine & Rehabilitation
DX: S72.002A Fracture of unspecified part of neck of left femur, initial encounter for closed fracture (principal); J96.21 Acute and chronic respiratory failure with hypoxia; I13.0 Hypertensive heart and chronic kidney disease with heart failure and stage 1 through stage 4 chronic kidney disease, or unspecified chronic kidney disease; N18.4 Chronic kidney disease, stage 4 (severe); L03.115 Cellulitis of right lower limb; L03.116 Cellulitis of left lower limb; J98.11 Atelectasis; I50.32 Chronic diastolic (congestive) heart failure; I48.91 Unspecified atrial fibrillation; E03.9 Hypothyroidism, unspecified; I73.9 Peripheral vascular disease, unspecified; R60.9 Edema, unspecified; I89.0 Lymphedema, not elsewhere classified; R23.8 Other skin changes; Z85.3 Personal history of malignant neoplasm of breast; Z95.0 Presence of cardiac pacemaker; W18.39XA Other fall on same level, initial encounter; Y93.89 Activity, other specified; Y92.098 Other place in other non-institutional residence as the place of occurrence of the external cause; Y99.8 Other external cause status; Z82.49 Family history of ischemic heart disease and other diseases of the circulatory system